=== PATIENT | male | born 1965 | race Caucasian/White ===

== ENCOUNTER 2017-04-23 12:08 | Inpatient (IN) | payer OTHER ==
[2017-04-23] VITALS (15 sets, daily range): BP systolic 132–195; BP diastolic 62–98
[~2017-04-23] VITALS: Ht 190.5 cm; Wt 83.8 kg
[~2017-04-23 12:08] MED LIST: ALBU1.25 NEB; ASCO100019 PO; ASPI-496 PO; ATOR40TA78 PO; CEFT2FRO2 IVPush; CHOL100012 PO; CLON0.2T PO; CLON0.3T47 PO; CLOP75TA52 PO; CYCL5TAB PO; FLUO10CA13 PO; GABA-826 PO; HYDR-3245 PO; HYDR-3307 PO; LORA-446 PO; LORA1TAB PO; LUBI24CA7 PO; LUBI8CAP4 PO; METH1TAB PO; MORP10SO PO; NALO1DIS IM; NIAC1000 PO; NITR0.4T28 SL; NITR100C57 PO; PIPE4.5V3 IV; PRAZ1CAP2 PO; PREG25CA PO; TRAM50TA2 PO
[2017-04-23] MEDS ORDERED: LORazepam 2 MG/ML, 1ML ONE (13:21)
[2017-04-23] MEDS ORDERED: L.E.T SOLUTION TP ONE ×2 (13:21→13:30)
[2017-04-23 13:24] LABS: HEMATOCRIT 39.5 % (39.2-51.8); HEMOGLOBIN 12.4 g/dL (13.7-18.0); WHITE BLOOD COUNT 3.6 x10^3/uL (3.4-10)
[2017-04-23] MEDS ORDERED: LORazepam 2 MG/ML, 1ML IVPush ONE (13:30)
[2017-04-23 13:42] LABS: ASPARTATE AMINO TRANSFERASE 30 U/L (15-37); BLOOD UREA NITROGEN 15 mg/dL (7-18)
[2017-04-23] MEDS ORDERED: FLUO40CA2 PO (13:42)
[2017-04-23] MEDS ORDERED: CLOP75TA52 PO (13:42)
[2017-04-23] MEDS ORDERED: LUBI24CA7 PO (13:42)
[2017-04-23] MEDS ORDERED: CHOL100011 PO (13:42)
[2017-04-23] MEDS ORDERED: ASPI-496 PO (13:42)
[2017-04-23] MEDS ORDERED: HALOPERIDOL 5 MG/ML IM STA (14:09)
[2017-04-23] MEDS ORDERED: DIPHENHYDRAMINE 50 MG/ML, 1ML ONE (14:11)
[2017-04-23] MEDS ORDERED: HALOPERIDOL 5 MG/ML ONE (14:11)
[2017-04-23] MEDS ORDERED: DIPHENHYDRAMINE 50 MG/ML, 1ML IVPush ONE (14:30)
[2017-04-23] MEDS ORDERED: OMNIPAQUE 350 MG/ML, 100ML BOTTLE ONE (15:14)
[2017-04-23] MEDS ORDERED: POLYETHYLENE GLYCOL 17 GM PACKET PO PRN (15:30)
[2017-04-23] MEDS ORDERED: BISACODYL 10 MG SUPP PR PRN (15:30)
[2017-04-23] MEDS: hydrALAzine 20 MG/ML, 1ML IVPush PRN (16:12)
[2017-04-23 16:41] LABS: EPI LOT# 5695218
[2017-04-23 16:48] LABS: HCT (PFA) 35.1 % (39.2-51.8); PLATELET (PFA) 122 x10^3/uL (130-400)
[2017-04-23] MEDS ORDERED: MORPHINE SULFATE 4 MG/ML, 1ML ONE (17:11)
[2017-04-23 18:12] LABS: EPI CARTRIDGE > 300 SECONDS (72-193)
[2017-04-23 18:13] LABS: ADP LOT# 5596625
[2017-04-23] MEDS: morphine SULFATE 10 MG/ML, 1ML IVPush PRN ×2 (20:22→22:39)
[2017-04-23] MEDS: FAMOTIDINE 20 MG/2 ML IVPush SCH (22:19)
[2017-04-23] MEDS: ATORVASTATIN 40 MG TABLET PO SCH (22:23)
[2017-04-23] MEDS: ACETAMINOPHEN 650 MG SUPP PR PRN (23:30)
[2017-04-24 00:28] LABS: EPI LOT# 5695218
[2017-04-24 00:36] LABS: HCT (PFA) 30.7 % (39.2-51.8); PLATELET (PFA) 155 x10^3/uL (130-400)
[2017-04-24 00:55] LABS: EPI CARTRIDGE > 300 SECONDS (72-193)
[2017-04-24 00:56] LABS: ADP LOT# 5596625
[2017-04-24] MEDS: HYDROcodone/APAP 10/325 MG TABLET PO PRN ×5 (03:55→23:47)
[2017-04-24 04:22] VITALS: BP 124/61
[2017-04-24 04:25] LABS: HEMATOCRIT 31.5 % (39.2-51.8); WHITE BLOOD COUNT 4.5 x10^3/uL (3.4-10)
[2017-04-24 04:32] LABS: BLOOD UREA NITROGEN 13 mg/dL (7-18)
[2017-04-24 04:36] LABS: ASPARTATE AMINO TRANSFERASE 53 U/L (15-37)
[2017-04-24] MEDS: morphine SULFATE 10 MG/ML, 1ML IVPush PRN ×3 (06:15→09:28)
[2017-04-24 07:47] LABS: FERRITIN 45.3 ng/mL (26-388)
[2017-04-24] MEDS: FAMOTIDINE 20 MG/2 ML IVPush SCH ×2 (09:32→21:43)
[2017-04-24] MEDS: DOCUSATE 100 MG CAPSULE PO PRN (12:05)
[2017-04-24] MEDS: FLUOXETINE 20 MG CAPSULE PO SCH (12:09)
[2017-04-24] MEDS: LUBIPROSTONE 24 MCG CAPSULE PO SCH (12:09)
[2017-04-24] MEDS: CHOLECALCIFEROL 1,000 UNIT TABLET PO SCH (13:12)
[2017-04-24] MEDS: DEXAMETHASONE 4 MG/ML, 1ML IVPush SCH ×3 (13:12→21:43)
[2017-04-24 14:23] LABS: EPI LOT# 5695218
[2017-04-24 14:34] LABS: HCT (PFA) 31.1 % (39.2-51.8); PLATELET (PFA) 143 x10^3/uL (130-400)
[2017-04-24 15:08] LABS: ADP LOT# 5596625; EPI CARTRIDGE 259 SECONDS (72-193)
[2017-04-24] MEDS: FERROUS SULFATE 325 MG TABLET PO SCH (15:43)
[2017-04-24] MEDS: LABETALOL 5MG/ML, 20ML IVPush PRN (18:22)
[2017-04-24] MEDS: hydrALAzine 20 MG/ML, 1ML IVPush PRN (19:16)
[2017-04-24] MEDS: ATORVASTATIN 40 MG TABLET PO SCH (21:43)
[2017-04-25] MEDS: DIPHENHYDRAMINE 50 MG/ML, 1ML IVPush PRN (00:25)
[2017-04-25] MEDS: LABETALOL 5MG/ML, 20ML IVPush PRN (02:02)
[2017-04-25] MEDS: morphine SULFATE 10 MG/ML, 1ML IVPush PRN (02:34)
[2017-04-25] MEDS: DEXAMETHASONE 4 MG/ML, 1ML IVPush SCH ×4 (04:23→21:30)
[2017-04-25] MEDS: hydrALAzine 20 MG/ML, 1ML IVPush PRN ×2 (05:26→13:38)
[2017-04-25 05:33] VITALS: BP 161/92
[2017-04-25 05:57] LABS: HEMATOCRIT 32.1 % (39.2-51.8); HEMOGLOBIN 10.1 g/dL (13.7-18.0); WHITE BLOOD COUNT 4.9 x10^3/uL (3.4-10)
[2017-04-25 06:09] LABS: BLOOD UREA NITROGEN 13 mg/dL (7-18)
[2017-04-25] MEDS: BISACODYL 10 MG SUPP PR SCH ×2 (09:00→10:41)
[2017-04-25] MEDS: FAMOTIDINE 20 MG/2 ML IVPush SCH ×2 (10:34→21:30)
[2017-04-25] MEDS: SODIUM CHLORIDE 0.9% 1,000 ML IV SCH ×2 (10:34→22:55)
[2017-04-25] MEDS: FERROUS SULFATE 325 MG TABLET PO SCH ×2 (10:34→18:16)
[2017-04-25] MEDS: LUBIPROSTONE 24 MCG CAPSULE PO SCH (10:35)
[2017-04-25] MEDS: FLUOXETINE 20 MG CAPSULE PO SCH (10:35)
[2017-04-25] MEDS: SODIUM CHLORIDE 1 GM TABLET PO SCH ×3 (10:35→21:30)
[2017-04-25] MEDS: CHOLECALCIFEROL 1,000 UNIT TABLET PO SCH (10:35)
[2017-04-25] MEDS: HYDROcodone/APAP 10/325 MG TABLET PO PRN ×4 (12:41→23:53)
[2017-04-25] MEDS: ATORVASTATIN 40 MG TABLET PO SCH (21:30)
[2017-04-26] MEDS: DIPHENHYDRAMINE 50 MG/ML, 1ML IVPush PRN (00:02)
[2017-04-26] MEDS: DEXAMETHASONE 4 MG/ML, 1ML IVPush SCH ×4 (03:47→22:10)
[2017-04-26 04:14] VITALS: BP 137/71
[2017-04-26 04:23] LABS: BLOOD UREA NITROGEN 19 mg/dL (7-18)
[2017-04-26 04:30] LABS: HEMATOCRIT 31.8 % (39.2-51.8); HEMOGLOBIN 9.9 g/dL (13.7-18.0); WHITE BLOOD COUNT 4.2 x10^3/uL (3.4-10)
[2017-04-26] MEDS: hydrALAzine 20 MG/ML, 1ML IVPush PRN (05:29)
[2017-04-26] MEDS: HYDROcodone/APAP 10/325 MG TABLET PO PRN (06:11)
[2017-04-26] MEDS ORDERED: OXYcodone IR 5MG TABLET PO PRN (09:00)
[2017-04-26] MEDS: SODIUM CHLORIDE 1 GM TABLET PO SCH ×3 (09:46→22:06)
[2017-04-26] MEDS: CHOLECALCIFEROL 1,000 UNIT TABLET PO SCH (09:46)
[2017-04-26] MEDS: FLUOXETINE 20 MG CAPSULE PO SCH (09:46)
[2017-04-26] MEDS: FAMOTIDINE 20 MG/2 ML IVPush SCH ×2 (09:47→22:06)
[2017-04-26] MEDS: FERROUS SULFATE 325 MG TABLET PO SCH ×2 (09:48→15:30)
[2017-04-26] MEDS: SODIUM CHLORIDE 0.9% 1,000 ML IV SCH (09:48)
[2017-04-26] MEDS: LUBIPROSTONE 24 MCG CAPSULE PO SCH (09:48)
[2017-04-26] MEDS: morphine SULFATE 10 MG/ML, 1ML IVPush PRN ×3 (12:04→22:44)
[2017-04-26] MEDS: HYDROcodone/APAP 5/325 TABLET PO PRN (17:49)
[2017-04-26 21:19] VITALS: BP 154/85
[2017-04-26] MEDS: ATORVASTATIN 40 MG TABLET PO SCH (22:06)
[2017-04-27] MEDS: SODIUM CHLORIDE 0.9% 1,000 ML IV SCH ×2 (00:48→14:56)
[2017-04-27] MEDS: morphine SULFATE 10 MG/ML, 1ML IVPush PRN ×7 (00:48→23:50)
[2017-04-27 02:10] VITALS: BP 157/79
[2017-04-27] MEDS: DEXAMETHASONE 4 MG/ML, 1ML IVPush SCH ×4 (03:28→21:10)
[2017-04-27] MEDS: HYDROcodone/APAP 5/325 TABLET PO PRN (06:04)
[2017-04-27 06:20] VITALS: BP 193/104
[2017-04-27 06:33] VITALS: BP 172/91
[2017-04-27] MEDS: LABETALOL 5MG/ML, 20ML IVPush PRN (06:36)
[2017-04-27] MEDS: FERROUS SULFATE 325 MG TABLET PO SCH ×2 (07:40→16:32)
[2017-04-27] MEDS: hydrALAzine 20 MG/ML, 1ML IVPush PRN (07:41)
[2017-04-27 08:23] VITALS: BP 154/86
[2017-04-27] MEDS: BISACODYL 10 MG SUPP PR SCH (09:00)
[2017-04-27 09:45] LABS: BLOOD UREA NITROGEN 14 mg/dL (7-18)
[2017-04-27] MEDS: FAMOTIDINE 20 MG/2 ML IVPush SCH ×2 (09:59→21:00)
[2017-04-27] MEDS: SODIUM CHLORIDE 1 GM TABLET PO SCH ×3 (09:59→21:01)
[2017-04-27] MEDS: LUBIPROSTONE 24 MCG CAPSULE PO SCH (09:59)
[2017-04-27] MEDS: FLUOXETINE 20 MG CAPSULE PO SCH (09:59)
[2017-04-27] MEDS: CHOLECALCIFEROL 1,000 UNIT TABLET PO SCH (09:59)
[2017-04-27 15:16] VITALS: BP 112/63
[2017-04-27] MEDS ORDERED: CIPROFLOXACIN OPHTH SOLN 0.3%, 5ML LEFTEYE SCH (19:00)
[2017-04-27 20:08] VITALS: BP 153/86
[2017-04-27] MEDS: CIPROFLOXACIN OPHTH SOLN 0.3%, 5ML LEFTEYE SCH (21:01)
[2017-04-27] MEDS: ATORVASTATIN 40 MG TABLET PO SCH (21:01)
[2017-04-27] MEDS: DOCUSATE 100 MG CAPSULE PO PRN (21:01)
[2017-04-28 00:18] VITALS: BP 157/90
[2017-04-28] MEDS: CIPROFLOXACIN OPHTH SOLN 0.3%, 5ML LEFTEYE SCH ×4 (02:26→21:00)
[2017-04-28] MEDS: DEXAMETHASONE 4 MG/ML, 1ML IVPush SCH ×4 (03:42→23:12)
[2017-04-28] MEDS: morphine SULFATE 10 MG/ML, 1ML IVPush PRN ×8 (03:42→21:59)
[2017-04-28] MEDS: SODIUM CHLORIDE 0.9% 1,000 ML IV SCH (05:03)
[2017-04-28 05:25] LABS: HEMATOCRIT 28.6 % (39.2-51.8); HEMOGLOBIN 9.3 g/dL (13.7-18.0); WHITE BLOOD COUNT 4.3 x10^3/uL (3.4-10)
[2017-04-28 05:37] LABS: BLOOD UREA NITROGEN 13 mg/dL (7-18)
[2017-04-28 06:55] VITALS: BP 184/98
[2017-04-28] MEDS: CHOLECALCIFEROL 1,000 UNIT TABLET PO SCH (07:38)
[2017-04-28] MEDS: FERROUS SULFATE 325 MG TABLET PO SCH ×2 (07:38→17:55)
[2017-04-28] MEDS: SODIUM CHLORIDE 1 GM TABLET PO SCH ×3 (07:38→21:26)
[2017-04-28] MEDS: FLUOXETINE 20 MG CAPSULE PO SCH (07:38)
[2017-04-28] MEDS: FAMOTIDINE 20 MG/2 ML IVPush SCH ×2 (07:39→21:27)
[2017-04-28] MEDS: LUBIPROSTONE 24 MCG CAPSULE PO SCH (07:39)
[2017-04-28] MEDS ORDERED: SODIUM CHLORIDE 3% 500 ML IV SCH (09:00)
[2017-04-28 10:12] LABS: BLOOD UREA NITROGEN 13 mg/dL (7-18)
[2017-04-28] MEDS ORDERED: MORPHINE SULFATE 4 MG/ML, 1ML ONE ×2 (12:42→16:00)
[2017-04-28 13:15] VITALS: BP 163/94
[2017-04-28 20:02] VITALS: BP 117/71
[2017-04-28] MEDS: ATORVASTATIN 40 MG TABLET PO SCH (21:26)
[2017-04-29] MEDS: morphine SULFATE 10 MG/ML, 1ML IVPush PRN ×10 (00:05→23:21)
[2017-04-29 02:12] VITALS: BP 161/93
[2017-04-29] MEDS: CIPROFLOXACIN OPHTH SOLN 0.3%, 5ML LEFTEYE SCH ×4 (03:00→20:56)
[2017-04-29] MEDS: DEXAMETHASONE 4 MG/ML, 1ML IVPush SCH ×4 (06:09→23:21)
[2017-04-29] MEDS: SODIUM CHLORIDE 3% 500 ML IV SCH ×2 (06:33→23:57)
[2017-04-29 07:12] VITALS: BP 186/96
[2017-04-29] MEDS: LUBIPROSTONE 24 MCG CAPSULE PO SCH (08:32)
[2017-04-29] MEDS: SODIUM CHLORIDE 1 GM TABLET PO SCH ×3 (08:32→20:56)
[2017-04-29] MEDS: CHOLECALCIFEROL 1,000 UNIT TABLET PO SCH (08:32)
[2017-04-29] MEDS: FLUOXETINE 20 MG CAPSULE PO SCH (08:32)
[2017-04-29] MEDS: FAMOTIDINE 20 MG/2 ML IVPush SCH ×2 (08:32→20:55)
[2017-04-29] MEDS: FERROUS SULFATE 325 MG TABLET PO SCH ×2 (08:32→16:54)
[2017-04-29] MEDS: ACETAMINOPHEN 650 MG SUPP PR PRN (08:36)
[2017-04-29] MEDS: BISACODYL 10 MG SUPP PR SCH ×2 (08:41→09:00)
[2017-04-29] MEDS ORDERED: SODIUM CHLORIDE 3% 500 ML IV SCH (09:00)
[2017-04-29 13:01] VITALS: BP 168/92
[2017-04-29 20:10] VITALS: BP 166/89
[2017-04-29] MEDS: ATORVASTATIN 40 MG TABLET PO SCH (20:56)
[2017-04-29] MEDS: LISINOPRIL 5 MG TABLET PO SCH (20:56)
[2017-04-30] MEDS: CIPROFLOXACIN OPHTH SOLN 0.3%, 5ML LEFTEYE SCH ×4 (03:00→20:25)
[2017-04-30] MEDS: morphine SULFATE 10 MG/ML, 1ML IVPush PRN ×8 (03:18→22:30)
[2017-04-30 03:25] VITALS: BP 189/85
[2017-04-30 05:10] LABS: BLOOD UREA NITROGEN 17 mg/dL (7-18); HEMATOCRIT 32.7 % (39.2-51.8); HEMOGLOBIN 10.4 g/dL (13.7-18.0); WHITE BLOOD COUNT 6.1 x10^3/uL (3.4-10)
[2017-04-30] MEDS: DEXAMETHASONE 4 MG/ML, 1ML IVPush SCH ×4 (05:20→22:30)
[2017-04-30 07:29] VITALS: BP 164/85
[2017-04-30] MEDS ORDERED: MORPHINE SULFATE 4 MG/ML, 1ML ONE (07:45)
[2017-04-30] MEDS: CHOLECALCIFEROL 1,000 UNIT TABLET PO SCH (07:56)
[2017-04-30] MEDS: LUBIPROSTONE 24 MCG CAPSULE PO SCH (07:57)
[2017-04-30] MEDS: FLUOXETINE 20 MG CAPSULE PO SCH (07:57)
[2017-04-30] MEDS: FERROUS SULFATE 325 MG TABLET PO SCH ×2 (07:58→18:14)
[2017-04-30] MEDS: FAMOTIDINE 20 MG/2 ML IVPush SCH ×2 (07:59→20:25)
[2017-04-30] MEDS: LISINOPRIL 5 MG TABLET PO SCH ×2 (07:59→20:26)
[2017-04-30] MEDS ORDERED: HYDROcodone/APAP 5/325 TABLET PO PRN (08:30)
[2017-04-30] MEDS: HYDROcodone/APAP 5/325 TABLET PO PRN ×2 (09:42→14:08)
[2017-04-30] MEDS ORDERED: SODIUM CHLORIDE 3% 500 ML IV SCH ×2 (10:00)
[2017-04-30 12:49] VITALS: BP 162/90
[2017-04-30] MEDS: AMLODIPINE 5 MG TABLET PO SCH (12:49)
[2017-04-30] MEDS: SODIUM CHLORIDE 1 GM TABLET PO SCH ×3 (12:49→20:26)
[2017-04-30 16:21] LABS: BLOOD UREA NITROGEN 16 mg/dL (7-18)
[2017-04-30 20:06] VITALS: BP 142/78
[2017-04-30] MEDS: ATORVASTATIN 40 MG TABLET PO SCH (20:25)
[2017-04-30 22:48] LABS: BLOOD UREA NITROGEN 16 mg/dL (7-18)
[2017-05-01] MEDS: morphine SULFATE 10 MG/ML, 1ML IVPush PRN ×3 (00:33→05:34)
[2017-05-01 01:59] VITALS: BP 180/104
[2017-05-01] MEDS: CIPROFLOXACIN OPHTH SOLN 0.3%, 5ML LEFTEYE SCH ×3 (03:00→15:00)
[2017-05-01] MEDS: DEXAMETHASONE 4 MG/ML, 1ML IVPush SCH ×4 (05:34→23:52)
[2017-05-01] MEDS: SODIUM CHLORIDE 1 GM TABLET PO SCH ×4 (05:34→20:13)
[2017-05-01 05:54] LABS: BLOOD UREA NITROGEN 13 mg/dL (7-18)
[2017-05-01 06:39] LABS: DIFF TOTAL CELLS COUNTED 100 CELL DIFF; HEMATOCRIT 34.7 % (39.2-51.8); HEMOGLOBIN 11.2 g/dL (13.7-18.0); WHITE BLOOD COUNT 7.7 x10^3/uL (3.4-10)
[2017-05-01 06:41] LABS: VERIFY COUNTS? YES
[2017-05-01 06:43] LABS: POLYCHROMASIA 1+
[2017-05-01 08:00] VITALS: BP 159/85
[2017-05-01] MEDS ORDERED: SODIUM CHLORIDE 3% 500 ML IV SCH (08:43)
[2017-05-01] MEDS: BISACODYL 10 MG SUPP PR SCH (09:00)
[2017-05-01] MEDS: FLUOXETINE 20 MG CAPSULE PO SCH (09:50)
[2017-05-01] MEDS: HYDROcodone/APAP 5/325 TABLET PO PRN ×3 (09:50→20:13)
[2017-05-01] MEDS: FAMOTIDINE 20 MG/2 ML IVPush SCH ×2 (09:50→20:13)
[2017-05-01] MEDS: CHOLECALCIFEROL 1,000 UNIT TABLET PO SCH (09:51)
[2017-05-01] MEDS: FERROUS SULFATE 325 MG TABLET PO SCH ×2 (09:51→18:33)
[2017-05-01] MEDS: AMLODIPINE 5 MG TABLET PO SCH (09:51)
[2017-05-01] MEDS: LUBIPROSTONE 24 MCG CAPSULE PO SCH (09:51)
[2017-05-01] MEDS: LISINOPRIL 5 MG TABLET PO SCH ×2 (09:59→21:08)
[2017-05-01 10:21] LABS: BLOOD UREA NITROGEN 14 mg/dL (7-18)
[2017-05-01] MEDS ORDERED: POTASSIUM CHLORIDE 20 MEQ TAB.ER.PRT PO SCH (10:30)
[2017-05-01 13:05] VITALS: BP 126/73
[2017-05-01 15:11] LABS: BLOOD UREA NITROGEN 17 mg/dL (7-18)
[2017-05-01 19:23] VITALS: BP 95/55
[2017-05-01] MEDS: ATORVASTATIN 40 MG TABLET PO SCH (20:13)
[2017-05-01] MEDS: DIPHENHYDRAMINE 50 MG/ML, 1ML IVPush PRN (21:08)
[2017-05-01 22:30] LABS: BLOOD UREA NITROGEN 20 mg/dL (7-18)
[2017-05-02 02:13] LABS: BLOOD UREA NITROGEN 19 mg/dL (7-18)
[2017-05-02 02:18] VITALS: BP 144/83
[2017-05-02] MEDS: HYDROcodone/APAP 5/325 TABLET PO PRN ×5 (04:08→22:20)
[2017-05-02] MEDS: DEXAMETHASONE 4 MG/ML, 1ML IVPush SCH ×2 (06:12→11:40)
[2017-05-02] MEDS: SODIUM CHLORIDE 1 GM TABLET PO SCH ×4 (06:12→21:02)
[2017-05-02 07:15] VITALS: BP 106/57
[2017-05-02] MEDS: AMLODIPINE 5 MG TABLET PO SCH (08:59)
[2017-05-02] MEDS: FAMOTIDINE 20 MG/2 ML IVPush SCH (09:00)
[2017-05-02] MEDS: LISINOPRIL 5 MG TABLET PO SCH ×2 (09:00→21:03)
[2017-05-02] MEDS: CHOLECALCIFEROL 1,000 UNIT TABLET PO SCH (09:00)
[2017-05-02] MEDS: LUBIPROSTONE 24 MCG CAPSULE PO SCH (09:00)
[2017-05-02] MEDS: FLUOXETINE 20 MG CAPSULE PO SCH (09:00)
[2017-05-02] MEDS: FERROUS SULFATE 325 MG TABLET PO SCH ×2 (09:00→16:13)
[2017-05-02 11:13] LABS: BLOOD UREA NITROGEN 16 mg/dL (7-18)
[2017-05-02] MEDS: DEXAMETHASONE INTENSOL 1 MG/ML ORAL SOL PO SCH ×2 (11:30→21:02)
[2017-05-02 12:54] VITALS: BP 124/70
[2017-05-02 15:16] LABS: BLOOD UREA NITROGEN 16 mg/dL (7-18)
[2017-05-02] MEDS: FLUDROCORTISONE 0.1 MG TABLET PO SCH (16:13)
[2017-05-02] MEDS: DIPHENHYDRAMINE 50 MG/ML, 1ML IVPush PRN ×2 (17:49→21:01)
[2017-05-02 19:15] VITALS: BP 95/57
[2017-05-02 20:24] LABS: BLOOD UREA NITROGEN 18 mg/dL (7-18)
[2017-05-02] MEDS: FAMOTIDINE 20 MG TABLET PO SCH (21:01)
[2017-05-02] MEDS: ATORVASTATIN 40 MG TABLET PO SCH (21:03)
[2017-05-03 02:00] VITALS: BP 118/66
[2017-05-03] MEDS: DEXAMETHASONE INTENSOL 1 MG/ML ORAL SOL PO SCH ×3 (02:24→19:29)
[2017-05-03] MEDS: HYDROcodone/APAP 5/325 TABLET PO PRN ×6 (02:25→22:45)
[2017-05-03 06:09] LABS: BLOOD UREA NITROGEN 19 mg/dL (7-18)
[2017-05-03] MEDS: SODIUM CHLORIDE 1 GM TABLET PO SCH ×4 (06:26→20:19)
[2017-05-03 06:47] VITALS: BP 145/78
[2017-05-03] MEDS: BISACODYL 10 MG SUPP PR SCH (09:00)
[2017-05-03] MEDS: FERROUS SULFATE 325 MG TABLET PO SCH ×2 (09:08→15:59)
[2017-05-03] MEDS: LISINOPRIL 5 MG TABLET PO SCH ×2 (09:08→20:19)
[2017-05-03] MEDS: FLUOXETINE 20 MG CAPSULE PO SCH (09:08)
[2017-05-03] MEDS: CHOLECALCIFEROL 1,000 UNIT TABLET PO SCH (09:08)
[2017-05-03] MEDS: FLUDROCORTISONE 0.1 MG TABLET PO SCH (09:09)
[2017-05-03] MEDS: FAMOTIDINE 20 MG TABLET PO SCH ×2 (09:09→20:19)
[2017-05-03] MEDS: LUBIPROSTONE 24 MCG CAPSULE PO SCH (09:09)
[2017-05-03] MEDS: AMLODIPINE 5 MG TABLET PO SCH (09:09)
[2017-05-03 10:25] LABS: BLOOD UREA NITROGEN 18 mg/dL (7-18)
[2017-05-03 12:08] VITALS: BP 103/55
[2017-05-03 16:30] LABS: BLOOD UREA NITROGEN 21 mg/dL (7-18)
[2017-05-03 20:14] VITALS: BP 107/60
[2017-05-03] MEDS: ATORVASTATIN 40 MG TABLET PO SCH (20:19)
[2017-05-03] MEDS: DIPHENHYDRAMINE 50 MG/ML, 1ML IVPush PRN (20:19)
[2017-05-03 22:40] LABS: BLOOD UREA NITROGEN 25 mg/dL (7-18)
[2017-05-04 03:13] VITALS: BP 101/56
[2017-05-04] MEDS: DEXAMETHASONE INTENSOL 1 MG/ML ORAL SOL PO SCH ×2 (03:18→11:14)
[2017-05-04] MEDS: HYDROcodone/APAP 5/325 TABLET PO PRN ×4 (03:18→16:01)
[2017-05-04] MEDS: SODIUM CHLORIDE 1 GM TABLET PO SCH ×3 (05:36→16:01)
[2017-05-04 05:48] LABS: HEMATOCRIT 34.3 % (39.2-51.8); WHITE BLOOD COUNT 7.8 x10^3/uL (3.4-10)
[2017-05-04 06:15] LABS: BLOOD UREA NITROGEN 18 mg/dL (7-18)
[2017-05-04 06:55] VITALS: BP 199/90
[2017-05-04] MEDS: hydrALAzine 20 MG/ML, 1ML IVPush PRN (08:13)
[2017-05-04 09:03] VITALS: BP 119/64
[2017-05-04] MEDS: FERROUS SULFATE 325 MG TABLET PO SCH (09:04)
[2017-05-04] MEDS: LUBIPROSTONE 24 MCG CAPSULE PO SCH (09:04)
[2017-05-04] MEDS: AMLODIPINE 5 MG TABLET PO SCH (09:05)
[2017-05-04] MEDS: FLUDROCORTISONE 0.1 MG TABLET PO SCH (09:05)
[2017-05-04] MEDS: CHOLECALCIFEROL 1,000 UNIT TABLET PO SCH (09:05)
[2017-05-04] MEDS: FLUOXETINE 20 MG CAPSULE PO SCH (09:05)
[2017-05-04] MEDS: LISINOPRIL 5 MG TABLET PO SCH (09:05)
[2017-05-04] MEDS: FAMOTIDINE 20 MG TABLET PO SCH (09:05)
[2017-05-04 12:03] VITALS: BP 126/64
[2017-05-04 12:33] LABS: BLOOD UREA NITROGEN 15 mg/dL (7-18)
[2017-05-04] MEDS ORDERED: FERR-36 PO (13:59)
[2017-05-04] MEDS ORDERED: CLON0.1T12 PO (13:59)
[2017-05-04] MEDS ORDERED: FAMO20TA7 PO (13:59)
[2017-05-04] MEDS ORDERED: SODI1TAB PO (13:59)
[2017-05-04] MEDS ORDERED: LISI5TAB7 PO (13:59)
[2017-05-04] MEDS ORDERED: HYDR-3240 PO (13:59)
[2017-05-04] MEDS ORDERED: DEXA0.5D PO (13:59)
[2017-05-04] MEDS ORDERED: FLUD0.1T PO (14:29)
[2017-05-04] MEDS ORDERED: AMLO10TA2 PO (14:29)
== END 2017-05-04 16:36 | disposition home health service (06) | DRG 82 ==
LOC: ED 12:56 → EDIP 13:08 → CCU 15:56 → 4EST 04-26 21:01
PROVIDERS: ADMIT Hospitalist; ATTEND Hospitalist
DX: S06.6X9A Traumatic subarachnoid hemorrhage with loss of consciousness of unspecified duration, initial encounter (principal); G82.50 Quadriplegia, unspecified; K59.2 Neurogenic bowel, not elsewhere classified; N31.9 Neuromuscular dysfunction of bladder, unspecified; E87.1 Hypo-osmolality and hyponatremia; N39.0 Urinary tract infection, site not specified; D50.9 Iron deficiency anemia, unspecified; S06.5X9A Traumatic subdural hemorrhage with loss of consciousness of unspecified duration, initial encounter; W05.0XXA Fall from non-moving wheelchair, initial encounter; E78.00 Pure hypercholesterolemia, unspecified; D63.8 Anemia in other chronic diseases classified elsewhere; H10.9 Unspecified conjunctivitis; I10 Essential (primary) hypertension; I25.10 Atherosclerotic heart disease of native coronary artery without angina pectoris; M81.0 Age-related osteoporosis without current pathological fracture; Y92.009 Unspecified place in unspecified non-institutional (private) residence as the place of occurrence of the external cause; Z79.02 Long term (current) use of antithrombotics/antiplatelets; Z79.82 Long term (current) use of aspirin; Z82.49 Family history of ischemic heart disease and other diseases of the circulatory system; Z87.440 Personal history of urinary (tract) infections; Z91.19 Patient's noncompliance with other medical treatment and regimen; Z95.1 Presence of aortocoronary bypass graft
CPT/HCPCS: 36415; 70450; 70496; 71010; 72125; 80048; 80053; 82040; 82728; 83540; 83550; 83735; 84295; 85014; 85025; 85049; 85576; 85610; 85730; 86850; 86900; 87081; 93005; 96372; 96374; 96375; J1100; Q9967; 92523-GN; J0360; J1200; J1630; J2060; J2270; J7030; P9017; P9035; S0028

== ENCOUNTER → 2017-05-18 | Outpatient (CLI) | payer OTHER ==
[~2017-05-18] MED LIST changes: +AMLO10TA2 PO; +CHOL100011 PO; +CLON0.1T12 PO; +DEXA0.5D PO; +FAMO20TA7 PO; +FERR-36 PO; +FLUD0.1T PO; +FLUO40CA2 PO; +HYDR-3240 PO; +LISI5TAB7 PO; +SODI1TAB PO
== END | disposition home or self-care (01) ==
LOC: RAD 13:52
PROVIDERS: ATTEND Nurse Practitioner
DX: G93.89 Other specified disorders of brain (principal); I60.9 Nontraumatic subarachnoid hemorrhage, unspecified
CPT/HCPCS: 70450

== ENCOUNTER 2017-10-01 17:02 | Emergency (ER) | payer OTHER ==
[~2017-10-01] VITALS: Ht 190.5 cm; Wt 75.0 kg
[~2017-10-01 17:02] MED LIST changes: +CHOL10003 PO; +CLON0.1T PO; -FERR-36 PO; +FERR-51 PO; +FERR324T5 PO
[2017-10-01] MEDS ORDERED: HYDROmorphone 2 MG/ML, 1ML ONE (18:12)
[2017-10-01 18:16] LABS: BASOPHILS # (AUTO) 0.02 x10^3/uL (0-0.1); BASOPHILS % (AUTO) 0 % (0-1); EOSINOPHILS # (AUTO) 0.08 x10^3/uL (0-0.4); EOSINOPHILS % (AUTO) 2 % (1-7); LYMPHOCYTES # (AUTO) 0.86 x10^3/uL (1-3.4); LYMPHOCYTES % (AUTO) 24 % (22-44); MD NO; MEAN CORPUSCULAR HEMOGLOBIN 30.9 pg (27.5-34.5); MEAN CORPUSCULAR HGB CONC 33.6 g/dL (33.2-36.2); MEAN CORPUSCULAR VOLUME 91.9 fL (81-97); MEAN PLATELET VOLUME 7.6 fL (7.4-10.4); MONOCYTES # (AUTO) 0.22 x10^3/uL (0.2-0.8); MONOCYTES % (AUTO) 6 % (2-9); NEUTROPHILS # (AUTO) 2.38 x10^3/uL (1.8-6.8); NEUTROPHILS % (AUTO) 67 % (42-75); PLATELET COUNT 113 x10^3/uL (130-400); RED BLOOD COUNT 5.25 x10^6/uL (4.38-5.82); RED CELL DISTRIBUTION WIDTH 13.7 % (9.4-14.8)
[2017-10-01] MEDS ORDERED: MORPHINE SULFATE 4 MG/ML, 1ML ONE ×2 (18:24→20:31)
[2017-10-01] MEDS ORDERED: ONDANSETRON 2MG/ML, 2ML ONE (18:24)
[2017-10-01 18:27] LABS: ALANINE AMINOTRANSFERASE 34 U/L (12-78); ANION GAP 8 mmol/L (5-15); CALCIUM 9.1 mg/dL (8.5-10.1); CHLORIDE 103 mmol/L (98-107); CREATININE 0.29 mg/dL (0.7-1.3)
[2017-10-01 18:29] LABS: ALKALINE PHOSPHATASE 193 U/L (45-117); BILIRUBIN,TOTAL 0.4 mg/dL (0.2-1.0); TOTAL PROTEIN 7.8 g/dL (6.4-8.2)
[2017-10-01] MEDS ORDERED: ONDANSETRON 2MG/ML, 2ML IVPush ONE (18:30)
[2017-10-01] MEDS ORDERED: HYDROmorphone 1 MG/ML, 1ML IM ONE (18:30)
[2017-10-01] MEDS: MORPHINE SULFATE 4 MG/ML, 1ML IVPush PRN ×2 (19:06→20:44)
[2017-10-01] MEDS ORDERED: LEVETIRACETAM 1,000 MG in SODIUM CHLORIDE 0.9% 100 ML IV ONE (20:30)
[2017-10-01 20:45] VITALS: BP 128/72
[2017-10-01] MEDS ORDERED: morphine SULFATE 10 MG/ML, 1ML IVPush ONE (21:30)
== END 2017-10-01 21:34 | disposition home or self-care (01) ==
LOC: ED 18:19
DX: R56.9 Unspecified convulsions (principal); E78.00 Pure hypercholesterolemia, unspecified; I11.9 Hypertensive heart disease without heart failure; I25.10 Atherosclerotic heart disease of native coronary artery without angina pectoris; Z87.820 Personal history of traumatic brain injury; Z95.1 Presence of aortocoronary bypass graft
CPT/HCPCS: 36415; 70450; 71045; 80053; 85025; 93005; 96365; 96375; 96376; 99285; J1953; J2405

== ENCOUNTER 2017-11-03 09:52 | Day surgery (SDC) | payer OTHER ==
[~2017-11-03] VITALS: Ht 190.5 cm; Wt 77.0 kg
[2017-11-03] MEDS ORDERED: LACTATED RINGERS 1,000 ML IV SCH (10:22)
[2017-11-03 10:27] VITALS: BP 161/85
[2017-11-03] MEDS ORDERED: PLEASE ENTER HEIGHT AND WEIGHT MC SCH (10:30)
[2017-11-03] MEDS ORDERED: FENTANYL PF 100 MCG/2ML ONE ×2 (11:37→12:56)
[2017-11-03] MEDS ORDERED: PROPOFOL 10 MG/ML, 20ML ONE (11:45)
[2017-11-03] MEDS ORDERED: EPHEDRINE 50 MG/ML, 1ML ONE (11:45)
[2017-11-03] MEDS ORDERED: HYDROcodone/APAP 7.5-325MG/15ML UDC ONE (12:48)
[2017-11-03] MEDS ORDERED: FENTANYL PF 100 MCG/2ML IV PRN (13:00)
[2017-11-03] MEDS ORDERED: HYDROcodone/APAP 7.5-325MG/15ML UDC PO PRN (13:00)
[2017-11-03] MEDS ORDERED: ONDANSETRON 2MG/ML, 2ML IVPush PRN (13:00)
[2017-11-03] MEDS ORDERED: GADOBUTROL 7.5 MMOL/7.5 ML PFS ONE (13:33)
== END 2017-11-03 14:40 ==
LOC: OUT 09:52 → EDSTATUS 11:45 → OUT 14:40
PROVIDERS: ATTEND Specialist
DX: R56.9 Unspecified convulsions (principal); Z95.1 Presence of aortocoronary bypass graft; I25.10 Atherosclerotic heart disease of native coronary artery without angina pectoris
CPT/HCPCS: 70553; A9585; J2704; J3010; J7120

== ENCOUNTER → 2017-11-05 | Outpatient (CLI) | payer OTHER | END | disposition home or self-care (01) | LOC: CARD 12:34 | PROVIDERS: ATTEND Specialist | DX: G40.901 Epilepsy, unspecified, not intractable, with status epilepticus (principal) | CPT/HCPCS: 95816 ==

== ENCOUNTER → 2018-01-11 | Outpatient (CLI) | payer OTHER ==
[~2018-01-11] MED LIST changes: +REGADENOSON 0.4 MG/5 ML SYRINGE ONE
== END | disposition home or self-care (01) ==
LOC: RAD 07:11
PROVIDERS: ATTEND Internal Medicine Cardiovascular Disease
DX: I25.10 Atherosclerotic heart disease of native coronary artery without angina pectoris (principal); I27.29 Other secondary pulmonary hypertension; I45.10 Unspecified right bundle-branch block; I35.0 Nonrheumatic aortic (valve) stenosis; R00.1 Bradycardia, unspecified
CPT/HCPCS: 78452; 93017; 93306; A9502; J2785

== ENCOUNTER 2018-10-16 10:53 | Outpatient (CLI) | payer MEDICARE, OTHER ==
[~2018-10-16 10:53] MED LIST changes: -AMLO10TA2 PO; +AMLO10TA8 PO; -CLON0.1T PO; +CLON0.1T22 PO; -REGADENOSON 0.4 MG/5 ML SYRINGE ONE
[2018-10-16] MEDS ORDERED: LEVE500T8 PO (11:48)
[2018-10-16] MEDS ORDERED: ASPI-496 PO (11:48)
[2018-10-16] MEDS ORDERED: LISI5TAB7 PO (11:48)
[2018-10-16 11:56] LABS: ALBUMIN 4.3 g/dL (3.4-5.0); ANION GAP 6 mmol/L (5-15); CALCIUM 9.2 mg/dL (8.5-10.1); CHLORIDE 103 mmol/L (98-107)
[2018-10-16 11:59] LABS: ALANINE AMINOTRANSFERASE 64 U/L (12-78); ALKALINE PHOSPHATASE 184 U/L (45-117); BILIRUBIN,TOTAL 0.4 mg/dL (0.2-1.0); CREATININE 0.44 mg/dL (0.7-1.3)
== END 2018-10-16 23:59 | disposition home or self-care (01) ==
LOC: STAR 10:53
PROVIDERS: ATTEND Urology
DX: Z01.818 Encounter for other preprocedural examination (principal); L02.91 Cutaneous abscess, unspecified
CPT/HCPCS: 36415; 80053

== ENCOUNTER 2018-10-23 09:36 | Day surgery (SDC) | payer MEDICARE, OTHER ==
[2018-10-16 11:50] VITALS: BP 115/76
[~2018-10-23] VITALS: Ht 190.5 cm; Wt 77.0 kg
[~2018-10-23 09:36] MED LIST changes: +LEVE500T8 PO
[2018-10-23] MEDS ORDERED: MIDAZOLAM 1 MG/ML, 2ML ONE (10:33)
[2018-10-23] MEDS ORDERED: FENTANYL PF 100 MCG/2ML ONE ×3 (10:33→13:16)
[2018-10-23] MEDS ORDERED: BUPIVACAINE/PF 0.25% ONE (10:47)
[2018-10-23] MEDS ORDERED: PROPOFOL 10 MG/ML, 20ML ONE (10:52)
[2018-10-23] MEDS ORDERED: DEXAMETHASONE 4 MG/ML, 1ML ONE (10:52)
[2018-10-23] MEDS ORDERED: ROCURONIUM 10MG/ML,5ML ONE (10:52)
[2018-10-23] MEDS ORDERED: LIDOCAINE 2% 100MG/5ML SYRINGE ONE (10:52)
[2018-10-23] MEDS ORDERED: ONDANSETRON 2MG/ML, 2ML ONE (10:52)
[2018-10-23] MEDS ORDERED: EPHEDRINE 50 MG/ML, 1ML ONE (10:52)
[2018-10-23] MEDS ORDERED: CEFTRIAXONE 1,000 MG ONE (11:18)
[2018-10-23] MEDS ORDERED: hydrALAzine 20 MG/ML, 1ML IV PRN (12:00)
[2018-10-23] MEDS ORDERED: MORPHINE SULFATE 4 MG/ML, 1ML IVPush PRN (12:00)
[2018-10-23] MEDS ORDERED: LORazepam 2 MG/ML, 1ML IVPush PRN (12:00)
[2018-10-23] MEDS ORDERED: KETOROLAC 30 MG/1 ML IV PRN (12:00)
[2018-10-23] MEDS ORDERED: ALBUTEROL SULFATE 2.5 MG/3 ML NPPB PRN (12:00)
[2018-10-23] MEDS ORDERED: OXYcodone 5 MG/5 ML ORAL.SOL UDC PO PRN (12:00)
[2018-10-23] MEDS ORDERED: HYDROmorphone 2 MG/ML, 1ML IVPush PRN (12:00)
[2018-10-23] MEDS ORDERED: METOCLOPRAMIDE 5 MG/ML, 2ML IV PRN (12:00)
[2018-10-23] MEDS ORDERED: SUGAMMADEX 200 MG/2 ML IVPush ONE (12:00)
[2018-10-23] MEDS ORDERED: LABETALOL 5MG/ML, 20ML IV PRN (12:00)
[2018-10-23] MEDS ORDERED: HYDROcodone/APAP 7.5-325MG/15ML UDC ONE (12:54)
[2018-10-23] MEDS: FENTANYL PF 100 MCG/2ML IV PRN ×3 (12:55→13:19)
[2018-10-23] MEDS: HYDROcodone/APAP 7.5-325MG/15ML UDC PO PRN ×2 (12:57→14:34)
== END 2018-10-23 15:15 | disposition home or self-care (01) ==
LOC: OUT 09:36
PROVIDERS: ATTEND Urology
DX: L02.211 Cutaneous abscess of abdominal wall (principal); I10 Essential (primary) hypertension; E78.00 Pure hypercholesterolemia, unspecified; Z87.440 Personal history of urinary (tract) infections; Z79.82 Long term (current) use of aspirin; Z88.1 Allergy status to other antibiotic agents; Z88.8 Allergy status to other drugs, medicaments and biological substances; Z96.643 Presence of artificial hip joint, bilateral; Z95.1 Presence of aortocoronary bypass graft
CPT/HCPCS: 10060; 52000; 87070; 87075; 87102; 87205; J0696; J1100; J2250; J2405; J2704; J3010; J3490

== ENCOUNTER 2018-11-19 14:14 | Inpatient (IN) | payer MEDICARE, OTHER ==
[~2018-11-19] VITALS: Ht 190.5 cm; Wt 82.1 kg
[2018-11-19] MEDS ORDERED: ACETAMINOPHEN 500 MG TABLET ONE (14:39)
--- NOTE | 2018-11-19 14:42 | NUR ---
TYLENOL 1000MG GIVEN IN TRIAGE.
--- NOTE | 2018-11-19 14:56 | NUR ---
PT TO ED FOR CHILLS AND FEVER X3 DAYS. PT RECENTLY SEEN FOR SUPRAPUBIC CATHETER INCISION/DEHISSENCE WITH SUTURES. CONNECTED TO MONITORS. VSS. 1G TYLENOL GIVEN IN TRIAGE. AWAITING EDMD ASSESSMENT.
[2018-11-19] MEDS ORDERED: SODIUM CHLORIDE FLUSH 10ML SYR IVF ONE ×2 (15:00→15:30)
[2018-11-19] MEDS ORDERED: ACETAMINOPHEN 500 MG TABLET PO ONE (15:00)
[2018-11-19 15:08] LABS: BASOPHILS % (AUTO) 0 % (0-1); EOSINOPHILS # (AUTO) 0.01 x10^3/uL (0-0.4); EOSINOPHILS % (AUTO) 0 % (1-7); LYMPHOCYTES # (AUTO) 0.35 x10^3/uL (1-3.4); LYMPHOCYTES % (AUTO) 6 % (22-44); MD NO; MEAN CORPUSCULAR HEMOGLOBIN 32.6 pg (27.5-34.5); MEAN CORPUSCULAR HGB CONC 34.5 g/dL (33.2-36.2); MEAN CORPUSCULAR VOLUME 94.6 fL (81-97); MONOCYTES # (AUTO) 0.23 x10^3/uL (0.2-0.8); MONOCYTES % (AUTO) 4 % (2-9); NEUTROPHILS # (AUTO) 5.57 x10^3/uL (1.8-6.8); NEUTROPHILS % (AUTO) 91 % (42-75); PLATELET COUNT 123 x10^3/uL (130-400); RED BLOOD COUNT 4.85 x10^6/uL (4.38-5.82)
[2018-11-19] MEDS ORDERED: ONDANSETRON 2MG/ML, 2ML ONE (15:16)
[2018-11-19] MEDS ORDERED: MORPHINE SULFATE 4 MG/ML, 1ML ONE ×2 (15:17→17:04)
[2018-11-19 15:19] LABS: ALANINE AMINOTRANSFERASE 48 U/L (12-78); ALBUMIN 4.4 g/dL (3.4-5.0); ANION GAP 9 mmol/L (5-15); CALCIUM 9.2 mg/dL (8.5-10.1); CHLORIDE 99 mmol/L (98-107)
--- NOTE | 2018-11-19 15:20 | NUR ---
xray to bedside. imaging complete.
[2018-11-19 15:21] LABS: ALKALINE PHOSPHATASE 165 U/L (45-117); BILIRUBIN,TOTAL 0.9 mg/dL (0.2-1.0); TOTAL PROTEIN 7.9 g/dL (6.4-8.2)
[2018-11-19] MEDS: MORPHINE SULFATE 4 MG/ML, 1ML IVPush PRN ×2 (15:27→17:17)
[2018-11-19] MEDS ORDERED: ONDANSETRON 2MG/ML, 2ML IVPush ONE (15:30)
--- NOTE | 2018-11-19 15:30 | NUR ---
IV ESTABLISHED. 2ND SET BC COLLECTED AND SENT. VSS. NO NEEDS AT THIS TIME.
--- NOTE | 2018-11-19 16:56 | NUR ---
REPORT RECEIVED FROM ALINA JEFFREY. ASSUMED CARE OF PT. PT CURRENTLY RESTING ON GURNEY. NAD NOTED. SKIN PWD. RESP EVEN AND EQAUL. CALL LIGHT WITHIN REACH. WILL CONT TO MONITOR PT.
[2018-11-19 17:03] LABS: CULTURE INDICATED? YES; MICROSCOPIC INDICATED
--- NOTE | 2018-11-19 17:21 | NUR ---
PT C/O INCREASED CHILLS WHICH PER PT IS A SIGN OF PAIN. PT REMEDICATED ORDERED FOR PAIN. PT REQUESTED FOOD AND PROVIDED WITH A SNACK WITH OKAY BY DEVIN BOLANOS. PT AO X 4. SKIN PWD. RESP EVEN AND EQAUL. PT AND AWARE THAT WE ARE WAITING FOR LAB RESULTS. PT DENIES OTHER NEEDS AT THIS TIME. CALL LIGHT WITHIN REACH. WILL CONT TO MONITOR PT.
--- NOTE | 2018-11-19 17:30 | NUR ---
DELAY IN ABX D/T WAITING FOR CONSULT WITH DR. BROTHERS TO ENSURE WE ARE PLACING PT ON CORRECT ABX.
--- NOTE | 2018-11-19 18:18 | NUR ---
PT SHIVERING, PT'S HYPOTENSIVE WITH 85/48 BP. ERMD SAHM NOTIFIED. IV BOLUS INITIATED. PT AO X 4. SKIN PWD. RESP EVEN AND EQAUL. AT BEDSIDE. CALL LIGHT WITHIN REACH. WILL CONT TO MONITOR PT.
[2018-11-19] MEDS ORDERED: FENTANYL PF 100 MCG/2ML ONE (18:22)
--- NOTE | 2018-11-19 18:27 | NUR ---
DAYNE TRAVIS AND DEVIN BOLANOS AWARE OF BP. IV BOLUS RUNNING. PT AND AWARE WE ARE WAITING TO ADMINISTER MORE PAIN MEDICATION AFTER IV BOLUS AND RECHECK OF BP. PT AO X 4. SKIN PWD. RESP EVEN AND EQAUL. PT ON CONT BP, CARDIAC AND O2 MONITORS. CALL LIGHT WITHIN REACH. WILL CONT TO MONITOR PT.
[2018-11-19] MEDS ORDERED: MEROPENEM 500 MG in SODIUM CHLORIDE 0.9% 100 ML IV ONE (18:30)
[2018-11-19] MEDS ORDERED: SODIUM CHLORIDE FLUSH 10ML SYR IVF PRN (18:30)
[2018-11-19] MEDS ORDERED: FENTANYL PF 100 MCG/2ML IV ONE (18:30)
[2018-11-19] MEDS ORDERED: SODIUM CHLORIDE 0.9% 1,000ML IVBOLUS ONE (18:30)
[2018-11-19] MEDS ORDERED: POLYETHYLENE GLYCOL 17 GM PACKET PO PRN (19:00)
[2018-11-19] MEDS ORDERED: ONDANSETRON 2MG/ML, 2ML IVPush PRN (19:00)
[2018-11-19] MEDS: MEROPENEM 1 GM in SODIUM CHLORIDE 0.9% 100 ML IV SCH (19:14)
--- NOTE | 2018-11-19 19:29 | NUR ---
PT CURRENTLY RESTING ON GURNEY. SHIVERING APPEARS TO BE DECREASED. PT REPORTS LESSENED SHIVERS. BP IMPROVED AFTER IVF. 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 PT AND AWARE THAT WE ARE WAITING FOR TRANSPORT. PT AO X 4. SKIN PWD. RESP EVEN AND EQAUL. CALL LIGHT WITHIN REACH. WILL CONT TO MONITOR PT.
[2018-11-19 19:45] VITALS: BP 135/70
[2018-11-19 20:10] VITALS: BP 135/70
[2018-11-19] MEDS: HEPARIN 5,000 UNITS/ML, 1ML SQ SCH (21:00)
[2018-11-19] MEDS ORDERED: ATORVASTATIN 40 MG TABLET PO SCH (21:00)
[2018-11-19] MEDS: SODIUM CHLORIDE 0.9% 1,000 ML IV SCH (21:18)
[2018-11-19] MEDS: ACETAMINOPHEN 325 MG TABLET PO PRN (21:18)
[2018-11-19] MEDS: NIACIN 500 MG TABLET.ER PO SCH (21:18)
[2018-11-19] MEDS: HYDROcodone/APAP 5/325 TABLET PO PRN (21:19)
[2018-11-19] MEDS: LEVETIRACETAM 500 MG TABLET PO SCH (21:19)
[2018-11-19 21:50] VITALS: BP 116/70
[2018-11-20] VITALS (9 sets, daily range): BP systolic 92–122; BP diastolic 51–67
[2018-11-20] MEDS: HYDROcodone/APAP 5/325 TABLET PO PRN ×6 (01:05→21:32)
[2018-11-20] MEDS: MORPHINE SULFATE 4 MG/ML, 1ML IVPush PRN ×6 (01:44→23:55)
[2018-11-20] MEDS: MEROPENEM 1 GM in SODIUM CHLORIDE 0.9% 100 ML IV SCH ×3 (03:25→19:30)
[2018-11-20] MEDS ORDERED: CYCLOBENZAPRINE 10 MG TABLET PO ONE (04:00)
[2018-11-20] MEDS: ACETAMINOPHEN 325 MG TABLET PO PRN ×3 (04:12→17:27)
[2018-11-20] MEDS: HEPARIN 5,000 UNITS/ML, 1ML SQ SCH ×3 (05:00→19:58)
[2018-11-20 06:13] LABS: ALBUMIN 3.1 g/dL (3.4-5.0); ANION GAP 7 mmol/L (5-15); CALCIUM 8.6 mg/dL (8.5-10.1); CHLORIDE 107 mmol/L (98-107); MEAN CORPUSCULAR HEMOGLOBIN 31.8 pg (27.5-34.5); MEAN CORPUSCULAR HGB CONC 33.6 g/dL (33.2-36.2); MEAN CORPUSCULAR VOLUME 94.7 fL (81-97); RED BLOOD COUNT 3.91 x10^6/uL (4.38-5.82)
[2018-11-20 06:17] LABS: ALANINE AMINOTRANSFERASE 31 U/L (12-78); ALKALINE PHOSPHATASE 107 U/L (45-117); BILIRUBIN,TOTAL 0.9 mg/dL (0.2-1.0); CREATININE 0.26 mg/dL (0.7-1.3)
[2018-11-20] MEDS: SODIUM CHLORIDE 0.9% 1,000 ML IV SCH ×3 (06:42→23:55)
[2018-11-20 06:50] LABS: MD YES
[2018-11-20 06:51] LABS: MEAN PLATELET VOLUME 6.9 fL (7.4-10.4); PLATELET COUNT 81 x10^3/uL (130-400)
[2018-11-20 06:53] LABS: <PLATELET ESTIMATE> DECREASED; <PLT MORPHOLOGY> NORMAL PLT MORPH; <RBC MORPHOLOGY> NORMAL; LYMPH#(MANUAL) 0.39 x10^3/uL (1-3.4); LYMPHS% (MANUAL) 7 % (22-44); MONOS#(MANUAL) 0.22 x10^3/uL (0.3-2.7); MONOS% (MANUAL) 4 % (2-9); SEGS% (MANUAL) 89 % (42-75)
[2018-11-20] MEDS: CHOLECALCIFEROL 1,000 UNIT TABLET PO SCH (08:44)
[2018-11-20] MEDS: LEVETIRACETAM 500 MG TABLET PO SCH ×2 (08:44→19:57)
[2018-11-20] MEDS: FLUOXETINE HCL 20 MG CAPSULE PO SCH (08:44)
[2018-11-20] MEDS: SENNA/DOCUSATE TABLET PO SCH (08:45)
[2018-11-20] MEDS: CYCLOBENZAPRINE 10 MG TABLET PO PRN ×2 (10:59→18:06)
[2018-11-20 15:44] LABS: HCT (SEDRATE) 38.7 % (39.2-51.8)
[2018-11-20] MEDS: SODIUM CHLORIDE 0.9% IVPB SCH (15:47)
[2018-11-20] MEDS: DAPTOMYCIN IVPB SCH (15:47)
[2018-11-20 16:02] LABS: CREATINE KINASE, TOTAL 110 U/L (39-308)
[2018-11-20 16:04] LABS: C-REACTIVE PROTEIN, QUANT > 19.00 mg/dL (0.02-0.49)
[2018-11-20] MEDS: ATORVASTATIN 10 MG TABLET PO SCH (19:58)
[2018-11-20] MEDS: NIACIN 500 MG TABLET.ER PO SCH (19:58)
[2018-11-20] MEDS: IBUPROFEN 200 MG TABLET PO PRN (19:59)
[2018-11-21] VITALS (9 sets, daily range): BP systolic 112–157; BP diastolic 61–96
[2018-11-21] MEDS: HYDROcodone/APAP 5/325 TABLET PO PRN ×5 (00:33→19:44)
[2018-11-21] MEDS: MEROPENEM 1 GM in SODIUM CHLORIDE 0.9% 100 ML IV SCH ×3 (03:19→19:43)
[2018-11-21] MEDS: MORPHINE SULFATE 4 MG/ML, 1ML IVPush PRN ×6 (03:27→21:37)
[2018-11-21] MEDS: HEPARIN 5,000 UNITS/ML, 1ML SQ SCH ×3 (05:00→20:16)
[2018-11-21 06:16] LABS: ANION GAP 10 mmol/L (5-15); CALCIUM 8.4 mg/dL (8.5-10.1); CHLORIDE 111 mmol/L (98-107)
[2018-11-21 06:17] LABS: CREATININE 0.23 mg/dL (0.7-1.3)
[2018-11-21 06:44] LABS: MEAN CORPUSCULAR HEMOGLOBIN 32.8 pg (27.5-34.5); MEAN CORPUSCULAR HGB CONC 34.7 g/dL (33.2-36.2); MEAN CORPUSCULAR VOLUME 94.7 fL (81-97); PLATELET COUNT 80 x10^3/uL (130-400); RED BLOOD COUNT 3.69 x10^6/uL (4.38-5.82); RED CELL DISTRIBUTION WIDTH 13.8 % (9.4-14.8)
[2018-11-21] MEDS: LEVETIRACETAM 500 MG TABLET PO SCH ×2 (07:40→20:15)
[2018-11-21] MEDS: SENNA/DOCUSATE TABLET PO SCH (07:40)
[2018-11-21] MEDS: FLUOXETINE HCL 20 MG CAPSULE PO SCH (07:40)
[2018-11-21] MEDS: CYCLOBENZAPRINE 10 MG TABLET PO PRN ×2 (07:41→15:38)
[2018-11-21] MEDS: CHOLECALCIFEROL 1,000 UNIT TABLET PO SCH (07:41)
[2018-11-21 07:53] LABS: BAND#(MANUAL) 0.51 x10^3/uL; BANDS%(MANUAL) 9 % (0-7); LYMPH#(MANUAL) 0.51 x10^3/uL (1-3.4); LYMPHS% (MANUAL) 9 % (22-44); MD YES; MONOS#(MANUAL) 0.57 x10^3/uL (0.3-2.7); MONOS% (MANUAL) 10 % (2-9); PMNS WITH VACUOLES 1+; SEGS% (MANUAL) 72 % (42-75)
[2018-11-21 07:54] LABS: <RBC MORPHOLOGY> NORMAL
[2018-11-21 07:56] LABS: <PLATELET ESTIMATE> DECREASED; SMALL PLATELETS 1+
[2018-11-21] MEDS: NS + 20MEQ KCL 1,000 ML IV SCH (08:38)
[2018-11-21] MEDS ORDERED: LORATADINE 10 MG TABLET PO SCH (09:00)
[2018-11-21] MEDS ORDERED: hydrALAzine 20 MG/ML, 1ML IV PRN (11:30)
[2018-11-21] MEDS ORDERED: ENALAPRILAT 1.25 MG/ML, 2ML IV PRN (11:30)
[2018-11-21] MEDS: LISINOPRIL 5 MG TABLET PO SCH ×2 (11:58→20:15)
[2018-11-21] MEDS: IBUPROFEN 200 MG TABLET PO PRN ×2 (12:21→21:37)
[2018-11-21] MEDS: DAPTOMYCIN IVPB SCH (15:17)
[2018-11-21] MEDS: SODIUM CHLORIDE 0.9% IVPB SCH (15:17)
[2018-11-21] MEDS: ACETAMINOPHEN 325 MG TABLET PO PRN (19:44)
[2018-11-21] MEDS: NIACIN 500 MG TABLET.ER PO SCH (20:15)
[2018-11-21] MEDS: ATORVASTATIN 10 MG TABLET PO SCH (20:15)
[2018-11-21] MEDS: BISACODYL 10 MG SUPP PR PRN (23:51)
[2018-11-22 00:01] VITALS: BP 131/75
[2018-11-22] MEDS: NS + 20MEQ KCL 1,000 ML IV SCH ×2 (00:46→14:20)
[2018-11-22] MEDS: MORPHINE SULFATE 4 MG/ML, 1ML IVPush PRN ×8 (00:47→23:59)
[2018-11-22 02:14] VITALS: BP 142/72
[2018-11-22] MEDS: HYDROcodone/APAP 5/325 TABLET PO PRN ×4 (02:18→19:37)
[2018-11-22] MEDS: ACETAMINOPHEN 325 MG TABLET PO PRN ×3 (02:18→20:40)
[2018-11-22] MEDS: MEROPENEM 1 GM in SODIUM CHLORIDE 0.9% 100 ML IV SCH (03:40)
[2018-11-22 03:56] VITALS: BP 142/74
[2018-11-22] MEDS: HEPARIN 5,000 UNITS/ML, 1ML SQ SCH ×3 (05:00→21:00)
[2018-11-22 06:00] LABS: MEAN CORPUSCULAR HEMOGLOBIN 31.5 pg (27.5-34.5); MEAN CORPUSCULAR VOLUME 95.6 fL (81-97); MEAN PLATELET VOLUME 6.7 fL (7.4-10.4); PLATELET COUNT 99 x10^3/uL (130-400); RED BLOOD COUNT 3.69 x10^6/uL (4.38-5.82); RED CELL DISTRIBUTION WIDTH 13.8 % (9.4-14.8)
[2018-11-22 06:06] LABS: ANION GAP 10 mmol/L (5-15); CALCIUM 8.2 mg/dL (8.5-10.1); CHLORIDE 106 mmol/L (98-107)
[2018-11-22 06:07] LABS: CREATININE 0.18 mg/dL (0.7-1.3)
[2018-11-22 06:28] LABS: BASOPHILS % (AUTO) 0 % (0-1); EOSINOPHILS # (AUTO) 0.02 x10^3/uL (0-0.4); EOSINOPHILS % (AUTO) 0 % (1-7); LYMPHOCYTES # (AUTO) 0.47 x10^3/uL (1-3.4); LYMPHOCYTES % (AUTO) 9 % (22-44); MD SCAN; MONOCYTES % (AUTO) 6 % (2-9); NEUTROPHILS # (AUTO) 4.15 x10^3/uL (1.8-6.8); NEUTROPHILS % (AUTO) 84 % (42-75)
[2018-11-22 07:27] VITALS: BP 137/76
[2018-11-22] MEDS: CHOLECALCIFEROL 1,000 UNIT TABLET PO SCH (08:03)
[2018-11-22] MEDS: FLUOXETINE HCL 20 MG CAPSULE PO SCH (08:04)
[2018-11-22] MEDS: LEVETIRACETAM 500 MG TABLET PO SCH ×2 (08:13→20:41)
[2018-11-22] MEDS: LISINOPRIL 5 MG TABLET PO SCH ×2 (08:13→20:40)
[2018-11-22] MEDS: SENNA/DOCUSATE TABLET PO SCH (08:13)
[2018-11-22] MEDS: CEFTRIAXONE PMX 2GM/50ML 50 ML IV SCH (10:32)
[2018-11-22] MEDS: IBUPROFEN 200 MG TABLET PO PRN ×2 (10:49→18:38)
[2018-11-22] MEDS: SODIUM CHLORIDE 0.9% IVPB SCH (12:52)
[2018-11-22] MEDS: DAPTOMYCIN IVPB SCH (12:52)
[2018-11-22 14:25] VITALS: BP 151/89
[2018-11-22 18:35] VITALS: BP 136/77
[2018-11-22] MEDS: CYCLOBENZAPRINE 10 MG TABLET PO PRN (18:44)
[2018-11-22] MEDS ORDERED: SODIUM CHLORIDE FLUSH 10ML SYR IVF PRN (20:00)
[2018-11-22] MEDS: NIACIN 500 MG TABLET.ER PO SCH (20:40)
[2018-11-22] MEDS: SODIUM CHLORIDE FLUSH 10ML SYR IVF SCH (20:41)
[2018-11-22] MEDS: ATORVASTATIN 10 MG TABLET PO SCH (21:00)
[2018-11-23] MEDS: MORPHINE SULFATE 4 MG/ML, 1ML IVPush PRN ×7 (03:06→22:05)
[2018-11-23 03:11] VITALS: BP 128/76
[2018-11-23] MEDS: HEPARIN 5,000 UNITS/ML, 1ML SQ SCH ×3 (05:00→21:00)
[2018-11-23] MEDS: HYDROcodone/APAP 5/325 TABLET PO PRN ×3 (05:08→17:42)
[2018-11-23] MEDS: ACETAMINOPHEN 325 MG TABLET PO PRN ×4 (05:08→22:05)
[2018-11-23 05:48] LABS: MEAN CORPUSCULAR HEMOGLOBIN 32.1 pg (27.5-34.5); MEAN CORPUSCULAR HGB CONC 33.7 g/dL (33.2-36.2); MEAN CORPUSCULAR VOLUME 95.3 fL (81-97); MEAN PLATELET VOLUME 7.2 fL (7.4-10.4); PLATELET COUNT 112 x10^3/uL (130-400); RED BLOOD COUNT 3.56 x10^6/uL (4.38-5.82); RED CELL DISTRIBUTION WIDTH 13.8 % (9.4-14.8)
[2018-11-23 05:53] LABS: CALCIUM 8.5 mg/dL (8.5-10.1); CHLORIDE 106 mmol/L (98-107)
[2018-11-23 05:57] LABS: ANION GAP 8 mmol/L (5-15); CREATININE 0.29 mg/dL (0.7-1.3)
[2018-11-23] MEDS: NS + 20MEQ KCL 1,000 ML IV SCH (06:04)
[2018-11-23 06:32] LABS: MD YES
[2018-11-23 06:35] LABS: BAND#(MANUAL) 0.85 x10^3/uL; BANDS%(MANUAL) 16 % (0-7); LYMPH#(MANUAL) 0.16 x10^3/uL (1-3.4); LYMPHS% (MANUAL) 3 % (22-44); MONOS#(MANUAL) 0.27 x10^3/uL (0.3-2.7); MONOS% (MANUAL) 5 % (2-9); SEG#(MANUAL) 4.03 x10^3/uL (1.8-6.8); SEGS% (MANUAL) 76 % (42-75)
[2018-11-23 06:36] LABS: <PLATELET ESTIMATE> DECREASED; <PLT MORPHOLOGY> NORMAL PLT MORPH; <RBC MORPHOLOGY> NORMAL
[2018-11-23 08:15] VITALS: BP 99/65
[2018-11-23] MEDS: SENNA/DOCUSATE TABLET PO SCH (09:00)
[2018-11-23] MEDS: SODIUM CHLORIDE FLUSH 10ML SYR IVF SCH ×2 (09:00→21:00)
[2018-11-23] MEDS: CHOLECALCIFEROL 1,000 UNIT TABLET PO SCH (09:42)
[2018-11-23] MEDS: LISINOPRIL 5 MG TABLET PO SCH ×2 (09:43→22:05)
[2018-11-23] MEDS: LEVETIRACETAM 500 MG TABLET PO SCH ×2 (09:43→22:05)
[2018-11-23] MEDS: FLUOXETINE HCL 20 MG CAPSULE PO SCH (09:43)
[2018-11-23] MEDS: AMLODIPINE 10 MG TAB PO SCH (09:44)
[2018-11-23] MEDS: CEFTRIAXONE PMX 2GM/50ML 50 ML IV SCH (09:54)
[2018-11-23 11:33] VITALS: BP 97/66
[2018-11-23] MEDS: SODIUM CHLORIDE 0.9% IVPB SCH (12:24)
[2018-11-23] MEDS: DAPTOMYCIN IVPB SCH (12:24)
[2018-11-23 13:00] VITALS: BP 129/72
[2018-11-23 15:22] VITALS: BP 109/68
[2018-11-23] MEDS: BISACODYL 10 MG SUPP PR PRN (15:29)
[2018-11-23 17:27] VITALS: BP 139/65
[2018-11-23] MEDS: CYCLOBENZAPRINE 10 MG TABLET PO PRN (17:43)
[2018-11-23] MEDS: LINEZOLID 600 MG TABLET PO SCH (22:05)
[2018-11-23] MEDS: ATORVASTATIN 10 MG TABLET PO SCH (22:05)
[2018-11-23] MEDS: NIACIN 500 MG TABLET.ER PO SCH (22:05)
[2018-11-24] MEDS: MORPHINE SULFATE 4 MG/ML, 1ML IVPush PRN ×8 (01:14→23:11)
[2018-11-24 01:15] VITALS: BP 108/66
[2018-11-24] MEDS: NS + 20MEQ KCL 1,000 ML IV SCH (01:15)
[2018-11-24] MEDS: ACETAMINOPHEN 325 MG TABLET PO PRN ×2 (04:33→11:55)
[2018-11-24] MEDS: HEPARIN 5,000 UNITS/ML, 1ML SQ SCH ×3 (04:47→19:44)
[2018-11-24] MEDS: LISINOPRIL 5 MG TABLET PO SCH ×2 (07:38→21:18)
[2018-11-24] MEDS: AMLODIPINE 10 MG TAB PO SCH (07:38)
[2018-11-24] MEDS: FLUOXETINE HCL 20 MG CAPSULE PO SCH (07:38)
[2018-11-24] MEDS: LINEZOLID 600 MG TABLET PO SCH ×2 (07:38→21:17)
[2018-11-24] MEDS: LEVETIRACETAM 500 MG TABLET PO SCH ×2 (07:38→21:17)
[2018-11-24] MEDS: CHOLECALCIFEROL 1,000 UNIT TABLET PO SCH (07:38)
[2018-11-24 08:03] VITALS: BP 130/77
[2018-11-24] MEDS: SODIUM CHLORIDE FLUSH 10ML SYR IVF SCH ×2 (08:42→19:44)
[2018-11-24] MEDS: SENNA/DOCUSATE TABLET PO SCH (08:42)
[2018-11-24] MEDS: CEFTRIAXONE PMX 2GM/50ML 50 ML IV SCH (09:19)
[2018-11-24] MEDS: CYCLOBENZAPRINE 10 MG TABLET PO PRN (09:20)
[2018-11-24 11:04] LABS: HCT (SEDRATE) 34.3 % (39.2-51.8)
[2018-11-24] MEDS: HYDROcodone/APAP 5/325 TABLET PO PRN ×3 (11:55→22:09)
[2018-11-24 12:25] VITALS: BP 125/75
[2018-11-24 20:00] VITALS: BP 149/77
[2018-11-24] MEDS: ATORVASTATIN 10 MG TABLET PO SCH (21:17)
[2018-11-24] MEDS: NIACIN 500 MG TABLET.ER PO SCH (21:17)
[2018-11-25 01:36] VITALS: BP 137/81
[2018-11-25] MEDS: MORPHINE SULFATE 4 MG/ML, 1ML IVPush PRN ×7 (02:06→22:44)
[2018-11-25] MEDS: HYDROcodone/APAP 5/325 TABLET PO PRN ×4 (03:51→21:03)
[2018-11-25] MEDS: HEPARIN 5,000 UNITS/ML, 1ML SQ SCH ×3 (04:16→20:59)
[2018-11-25 05:57] LABS: CHLORIDE 100 mmol/L (98-107)
[2018-11-25 06:18] LABS: ALANINE AMINOTRANSFERASE 30 U/L (12-78); ALBUMIN 2.4 g/dL (3.4-5.0); ALKALINE PHOSPHATASE 104 U/L (45-117); ANION GAP 7 mmol/L (5-15); BASOPHILS # (AUTO) 0.02 x10^3/uL (0-0.1); BASOPHILS % (AUTO) 0 % (0-1); BILIRUBIN,TOTAL 0.8 mg/dL (0.2-1.0); CALCIUM 8.1 mg/dL (8.5-10.1); CREATININE 0.28 mg/dL (0.7-1.3); EOSINOPHILS # (AUTO) 0.01 x10^3/uL (0-0.4); EOSINOPHILS % (AUTO) 0 % (1-7); LYMPHOCYTES # (AUTO) 0.44 x10^3/uL (1-3.4); LYMPHOCYTES % (AUTO) 8 % (22-44); MD NO; MEAN CORPUSCULAR HEMOGLOBIN 32.6 pg (27.5-34.5); MEAN CORPUSCULAR HGB CONC 34.5 g/dL (33.2-36.2); MEAN CORPUSCULAR VOLUME 94.4 fL (81-97); MEAN PLATELET VOLUME 7.1 fL (7.4-10.4); MONOCYTES # (AUTO) 0.52 x10^3/uL (0.2-0.8); MONOCYTES % (AUTO) 9 % (2-9); NEUTROPHILS # (AUTO) 4.49 x10^3/uL (1.8-6.8); NEUTROPHILS % (AUTO) 82 % (42-75); PLATELET COUNT 142 x10^3/uL (130-400); RED BLOOD COUNT 3.48 x10^6/uL (4.38-5.82); RED CELL DISTRIBUTION WIDTH 13.9 % (9.4-14.8); TOTAL PROTEIN 6.1 g/dL (6.4-8.2)
[2018-11-25 07:40] VITALS: BP 142/83
[2018-11-25] MEDS: CHOLECALCIFEROL 1,000 UNIT TABLET PO SCH (08:27)
[2018-11-25] MEDS: LEVETIRACETAM 500 MG TABLET PO SCH ×2 (08:27→21:03)
[2018-11-25] MEDS: CEFTRIAXONE PMX 2GM/50ML 50 ML IV SCH (08:28)
[2018-11-25] MEDS: FLUOXETINE HCL 20 MG CAPSULE PO SCH (08:28)
[2018-11-25] MEDS: LISINOPRIL 5 MG TABLET PO SCH ×2 (08:28→21:03)
[2018-11-25] MEDS: AMLODIPINE 10 MG TAB PO SCH (08:28)
[2018-11-25] MEDS: LINEZOLID 600 MG TABLET PO SCH (08:28)
[2018-11-25] MEDS: SODIUM CHLORIDE FLUSH 10ML SYR IVF SCH ×2 (08:29→21:00)
[2018-11-25] MEDS: SENNA/DOCUSATE TABLET PO SCH (08:29)
[2018-11-25] MEDS ORDERED: FUROSEMIDE 40 MG/4 ML IV ONE (09:30)
[2018-11-25 12:30] VITALS: BP 137/87
[2018-11-25] MEDS: ERTAPENEM 1 GM in SODIUM CHLORIDE 0.9% 50 ML IV SCH (13:32)
[2018-11-25] MEDS: DAPTOMYCIN 725 MG in SODIUM CHLORIDE 0.9% 100 ML IVPB SCH (14:25)
[2018-11-25 20:05] VITALS: BP 116/71
[2018-11-25] MEDS: NIACIN 500 MG TABLET.ER PO SCH (21:03)
[2018-11-26 00:31] VITALS: BP 128/68
[2018-11-26] MEDS: ACETAMINOPHEN 325 MG TABLET PO PRN ×2 (01:01→20:14)
[2018-11-26] MEDS: HYDROcodone/APAP 5/325 TABLET PO PRN ×5 (01:02→22:17)
[2018-11-26] MEDS: MORPHINE SULFATE 4 MG/ML, 1ML IVPush PRN ×7 (01:46→20:58)
[2018-11-26] MEDS: HEPARIN 5,000 UNITS/ML, 1ML SQ SCH ×3 (02:54→19:50)
[2018-11-26 03:09] LABS: ANION GAP 11 mmol/L (5-15); CALCIUM 8.1 mg/dL (8.5-10.1); CHLORIDE 98 mmol/L (98-107); CREATININE 0.28 mg/dL (0.7-1.3)
[2018-11-26 03:28] LABS: BASOPHILS % (AUTO) 0 % (0-1); EOSINOPHILS # (AUTO) 0.03 x10^3/uL (0-0.4); EOSINOPHILS % (AUTO) 1 % (1-7); LYMPHOCYTES # (AUTO) 0.48 x10^3/uL (1-3.4); LYMPHOCYTES % (AUTO) 8 % (22-44); MD NO; MEAN CORPUSCULAR HEMOGLOBIN 32.2 pg (27.5-34.5); MEAN CORPUSCULAR VOLUME 94.7 fL (81-97); MEAN PLATELET VOLUME 6.8 fL (7.4-10.4); MONOCYTES # (AUTO) 0.45 x10^3/uL (0.2-0.8); MONOCYTES % (AUTO) 8 % (2-9); NEUTROPHILS # (AUTO) 4.77 x10^3/uL (1.8-6.8); NEUTROPHILS % (AUTO) 83 % (42-75); PLATELET COUNT 181 x10^3/uL (130-400); RED BLOOD COUNT 3.59 x10^6/uL (4.38-5.82); RED CELL DISTRIBUTION WIDTH 13.8 % (9.4-14.8)
[2018-11-26 06:48] VITALS: BP 143/78
[2018-11-26] MEDS: AMLODIPINE 10 MG TAB PO SCH (07:43)
[2018-11-26] MEDS: SODIUM CHLORIDE FLUSH 10ML SYR IVF SCH ×2 (07:43→19:50)
[2018-11-26] MEDS: FLUOXETINE HCL 20 MG CAPSULE PO SCH (07:43)
[2018-11-26] MEDS: SENNA/DOCUSATE TABLET PO SCH (07:43)
[2018-11-26] MEDS: LEVETIRACETAM 500 MG TABLET PO SCH ×2 (07:43→19:48)
[2018-11-26] MEDS: CHOLECALCIFEROL 1,000 UNIT TABLET PO SCH (07:43)
[2018-11-26] MEDS: LISINOPRIL 5 MG TABLET PO SCH ×2 (07:43→19:49)
[2018-11-26] MEDS: ERTAPENEM 1 GM in SODIUM CHLORIDE 0.9% 50 ML IV SCH (11:58)
[2018-11-26 12:20] VITALS: BP 102/64
[2018-11-26] MEDS: DAPTOMYCIN 725 MG in SODIUM CHLORIDE 0.9% 100 ML IVPB SCH (13:31)
[2018-11-26] MEDS ORDERED: POTASSIUM CHLORIDE 20 MEQ TAB.ER.PRT PO ONE (14:00)
[2018-11-26] MEDS: NIACIN 500 MG TABLET.ER PO SCH (19:48)
[2018-11-26] MEDS: CYCLOBENZAPRINE 10 MG TABLET PO PRN (19:49)
[2018-11-26 20:00] VITALS: BP 121/67
[2018-11-27 00:59] VITALS: BP 110/69
[2018-11-27] MEDS: MORPHINE SULFATE 4 MG/ML, 1ML IVPush PRN ×6 (01:15→22:58)
[2018-11-27] MEDS: HYDROcodone/APAP 5/325 TABLET PO PRN ×4 (03:19→20:57)
[2018-11-27] MEDS: HEPARIN 5,000 UNITS/ML, 1ML SQ SCH ×3 (04:48→21:00)
[2018-11-27 05:19] LABS: BASOPHILS % (AUTO) 0 % (0-1); EOSINOPHILS # (AUTO) 0.03 x10^3/uL (0-0.4); EOSINOPHILS % (AUTO) 0 % (1-7); LYMPHOCYTES % (AUTO) 6 % (22-44); MD NO; MEAN CORPUSCULAR HEMOGLOBIN 31.2 pg (27.5-34.5); MEAN CORPUSCULAR VOLUME 94.7 fL (81-97); MEAN PLATELET VOLUME 6.6 fL (7.4-10.4); MONOCYTES # (AUTO) 0.52 x10^3/uL (0.2-0.8); MONOCYTES % (AUTO) 8 % (2-9); NEUTROPHILS # (AUTO) 5.84 x10^3/uL (1.8-6.8); NEUTROPHILS % (AUTO) 86 % (42-75); PLATELET COUNT 185 x10^3/uL (130-400); RED BLOOD COUNT 3.86 x10^6/uL (4.38-5.82); RED CELL DISTRIBUTION WIDTH 13.7 % (9.4-14.8)
[2018-11-27 05:32] LABS: CALCIUM 8.4 mg/dL (8.5-10.1); CHLORIDE 100 mmol/L (98-107)
[2018-11-27 05:42] LABS: ALANINE AMINOTRANSFERASE 42 U/L (12-78); ALBUMIN 2.6 g/dL (3.4-5.0); ALKALINE PHOSPHATASE 113 U/L (45-117); ANION GAP 6 mmol/L (5-15); BILIRUBIN,TOTAL 0.7 mg/dL (0.2-1.0); CREATINE KINASE, TOTAL 71 U/L (39-308); CREATININE 0.29 mg/dL (0.7-1.3); TOTAL PROTEIN 6.3 g/dL (6.4-8.2)
[2018-11-27 05:55] LABS: HCT (SEDRATE) 36.6 % (39.2-51.8)
[2018-11-27 06:08] LABS: C-REACTIVE PROTEIN, QUANT > 19.00 mg/dL (0.02-0.49)
[2018-11-27 07:36] VITALS: BP 116/77
[2018-11-27] MEDS: LEVETIRACETAM 500 MG TABLET PO SCH ×2 (08:03→19:37)
[2018-11-27] MEDS: SODIUM CHLORIDE FLUSH 10ML SYR IVF SCH ×2 (09:00→19:38)
[2018-11-27] MEDS: SENNA/DOCUSATE TABLET PO SCH (09:00)
[2018-11-27] MEDS: AMLODIPINE 10 MG TAB PO SCH (09:00)
[2018-11-27] MEDS: CHOLECALCIFEROL 1,000 UNIT TABLET PO SCH (09:00)
[2018-11-27] MEDS: FLUOXETINE HCL 20 MG CAPSULE PO SCH (09:00)
[2018-11-27] MEDS: LISINOPRIL 5 MG TABLET PO SCH ×2 (09:00→19:38)
[2018-11-27] MEDS ORDERED: PROPOFOL 10 MG/ML, 20ML ONE (11:31)
[2018-11-27] MEDS ORDERED: ONDANSETRON 2MG/ML, 2ML IV PRN (13:00)
[2018-11-27] MEDS ORDERED: ONDANSETRON ODT 8 MG PO PRN (13:00)
[2018-11-27] MEDS ORDERED: hydrALAzine 20 MG/ML, 1ML IV PRN (13:00)
[2018-11-27] MEDS ORDERED: MORPHINE SULFATE 4 MG/ML, 1ML IVPush PRN (13:00)
[2018-11-27] MEDS ORDERED: PROMETHAZINE 12.5 MG SUPP PR PRN (13:00)
[2018-11-27] MEDS ORDERED: MIDAZOLAM 1 MG/ML, 2ML IV PRN (13:00)
[2018-11-27] MEDS ORDERED: HYDROmorphone 2 MG/ML, 1ML IVPush PRN (13:00)
[2018-11-27] MEDS ORDERED: DIAZEPAM 5 MG/ML, 2ML IVPush PRN (13:00)
[2018-11-27] MEDS ORDERED: MEPERIDINE/PF 25MG/0.5ML IVPush PRN (13:00)
[2018-11-27] MEDS ORDERED: HALOPERIDOL 5 MG/ML IV PRN (13:00)
[2018-11-27] MEDS ORDERED: LABETALOL 5MG/ML, 20ML IV PRN (13:00)
[2018-11-27] MEDS ORDERED: PROMETHAZINE 25 MG/ML, 1ML IV PRN (13:00)
[2018-11-27] MEDS ORDERED: EPHEDRINE 50 MG/ML, 1ML IVPush PRN (13:00)
[2018-11-27] MEDS ORDERED: FENTANYL PF 100 MCG/2ML IV PRN (13:00)
[2018-11-27] MEDS ORDERED: ALBUTEROL SULFATE 2.5 MG/3 ML NPPB PRN (13:00)
[2018-11-27] MEDS ORDERED: MORPHINE SULFATE 4 MG/ML, 1ML ONE (13:09)
[2018-11-27 14:00] VITALS: BP 100/65
[2018-11-27] MEDS: ERTAPENEM 1 GM in SODIUM CHLORIDE 0.9% 50 ML IV SCH (14:38)
[2018-11-27] MEDS: CYCLOBENZAPRINE 10 MG TABLET PO PRN ×2 (15:40→23:54)
[2018-11-27] MEDS: DAPTOMYCIN 725 MG in SODIUM CHLORIDE 0.9% 100 ML IVPB SCH (16:28)
[2018-11-27 19:03] VITALS: BP 117/73
[2018-11-27] MEDS: NIACIN 500 MG TABLET.ER PO SCH (19:37)
[2018-11-28 01:35] VITALS: BP 131/79
[2018-11-28] MEDS: MORPHINE SULFATE 4 MG/ML, 1ML IVPush PRN ×6 (04:12→22:18)
[2018-11-28] MEDS: HEPARIN 5,000 UNITS/ML, 1ML SQ SCH ×3 (05:00→21:00)
[2018-11-28] MEDS: HYDROcodone/APAP 5/325 TABLET PO PRN ×4 (05:49→21:20)
[2018-11-28 07:30] VITALS: BP 124/80
[2018-11-28 07:36] LABS: BASOPHILS # (AUTO) 0.03 x10^3/uL (0-0.1); BASOPHILS % (AUTO) 0 % (0-1); EOSINOPHILS # (AUTO) 0.03 x10^3/uL (0-0.4); EOSINOPHILS % (AUTO) 0 % (1-7); LYMPHOCYTES # (AUTO) 0.62 x10^3/uL (1-3.4); LYMPHOCYTES % (AUTO) 6 % (22-44); MD NO; MEAN CORPUSCULAR HEMOGLOBIN 31.1 pg (27.5-34.5); MEAN CORPUSCULAR VOLUME 94.3 fL (81-97); MEAN PLATELET VOLUME 6.8 fL (7.4-10.4); MONOCYTES # (AUTO) 0.55 x10^3/uL (0.2-0.8); MONOCYTES % (AUTO) 5 % (2-9); NEUTROPHILS # (AUTO) 9.14 x10^3/uL (1.8-6.8); NEUTROPHILS % (AUTO) 88 % (42-75); PLATELET COUNT 197 x10^3/uL (130-400); RED BLOOD COUNT 3.81 x10^6/uL (4.38-5.82)
[2018-11-28 07:37] LABS: ANION GAP 6 mmol/L (5-15); CALCIUM 8.4 mg/dL (8.5-10.1); CHLORIDE 99 mmol/L (98-107); CREATININE 0.24 mg/dL (0.7-1.3)
[2018-11-28] MEDS: CYCLOBENZAPRINE 10 MG TABLET PO PRN ×2 (08:00→16:28)
[2018-11-28] MEDS: SODIUM CHLORIDE FLUSH 10ML SYR IVF SCH ×2 (10:38→21:00)
[2018-11-28] MEDS: AMLODIPINE 10 MG TAB PO SCH (10:39)
[2018-11-28] MEDS: LEVETIRACETAM 500 MG TABLET PO SCH ×2 (10:39→21:20)
[2018-11-28] MEDS: LISINOPRIL 5 MG TABLET PO SCH ×2 (10:39→21:20)
[2018-11-28] MEDS: CHOLECALCIFEROL 1,000 UNIT TABLET PO SCH (10:40)
[2018-11-28] MEDS: FLUOXETINE HCL 20 MG CAPSULE PO SCH (10:40)
[2018-11-28] MEDS: SENNA/DOCUSATE TABLET PO SCH (10:40)
[2018-11-28] MEDS: ERTAPENEM 1 GM in SODIUM CHLORIDE 0.9% 50 ML IV SCH (14:30)
[2018-11-28 15:06] VITALS: BP 131/79
[2018-11-28] MEDS: DAPTOMYCIN 725 MG in SODIUM CHLORIDE 0.9% 100 ML IVPB SCH (16:28)
[2018-11-28 19:30] VITALS: BP 127/75
[2018-11-28] MEDS: NIACIN 500 MG TABLET.ER PO SCH (21:19)
[2018-11-28] MEDS: IBUPROFEN 200 MG TABLET PO PRN (21:20)
[2018-11-29] MEDS: CYCLOBENZAPRINE 10 MG TABLET PO PRN (00:34)
[2018-11-29 01:37] VITALS: BP 136/76
[2018-11-29] MEDS: HEPARIN 5,000 UNITS/ML, 1ML SQ SCH ×3 (05:00→21:00)
[2018-11-29] MEDS: MORPHINE SULFATE 4 MG/ML, 1ML IVPush PRN ×6 (06:11→23:07)
[2018-11-29 06:58] LABS: BASOPHILS # (AUTO) 0.01 x10^3/uL (0-0.1); BASOPHILS % (AUTO) 0 % (0-1); EOSINOPHILS # (AUTO) 0.22 x10^3/uL (0-0.4); EOSINOPHILS % (AUTO) 3 % (1-7); LYMPHOCYTES # (AUTO) 0.68 x10^3/uL (1-3.4); LYMPHOCYTES % (AUTO) 9 % (22-44); MD NO; MEAN CORPUSCULAR HEMOGLOBIN 31.9 pg (27.5-34.5); MEAN CORPUSCULAR HGB CONC 33.6 g/dL (33.2-36.2); MEAN CORPUSCULAR VOLUME 94.9 fL (81-97); MEAN PLATELET VOLUME 6.8 fL (7.4-10.4); MONOCYTES % (AUTO) 6 % (2-9); NEUTROPHILS # (AUTO) 6.38 x10^3/uL (1.8-6.8); NEUTROPHILS % (AUTO) 82 % (42-75); PLATELET COUNT 190 x10^3/uL (130-400); RED BLOOD COUNT 3.72 x10^6/uL (4.38-5.82); RED CELL DISTRIBUTION WIDTH 13.9 % (9.4-14.8)
[2018-11-29 07:18] LABS: ALANINE AMINOTRANSFERASE 55 U/L (12-78); ALBUMIN 2.5 g/dL (3.4-5.0); ANION GAP 8 mmol/L (5-15); CALCIUM 8.2 mg/dL (8.5-10.1); CHLORIDE 103 mmol/L (98-107); CREATININE 0.27 mg/dL (0.7-1.3)
[2018-11-29 07:20] LABS: ALKALINE PHOSPHATASE 124 U/L (45-117); BILIRUBIN,TOTAL 0.7 mg/dL (0.2-1.0); TOTAL PROTEIN 6.5 g/dL (6.4-8.2)
[2018-11-29 07:50] VITALS: BP 119/76
[2018-11-29] MEDS: SODIUM CHLORIDE FLUSH 10ML SYR IVF SCH ×2 (09:00→21:16)
[2018-11-29] MEDS: LISINOPRIL 5 MG TABLET PO SCH ×2 (09:00→21:15)
[2018-11-29] MEDS: SENNA/DOCUSATE TABLET PO SCH (09:04)
[2018-11-29] MEDS: LEVETIRACETAM 500 MG TABLET PO SCH ×2 (09:05→21:15)
[2018-11-29] MEDS: FLUOXETINE HCL 20 MG CAPSULE PO SCH (09:05)
[2018-11-29] MEDS: AMLODIPINE 10 MG TAB PO SCH (09:05)
[2018-11-29] MEDS: CHOLECALCIFEROL 1,000 UNIT TABLET PO SCH (09:05)
[2018-11-29] MEDS: ERTAPENEM 1 GM in SODIUM CHLORIDE 0.9% 50 ML IV SCH (12:26)
[2018-11-29] MEDS: DAPTOMYCIN 725 MG in SODIUM CHLORIDE 0.9% 100 ML IVPB SCH (13:20)
[2018-11-29 14:50] VITALS: BP 113/73
[2018-11-29] MEDS: HYDROcodone/APAP 5/325 TABLET PO PRN (16:55)
[2018-11-29 17:36] LABS: CULTURE INDICATED? YES; MICROSCOPIC INDICATED
[2018-11-29 18:55] VITALS: BP 142/88
[2018-11-29] MEDS: NIACIN 500 MG TABLET.ER PO SCH (21:15)
[2018-11-30] MEDS: HYDROcodone/APAP 5/325 TABLET PO PRN ×3 (00:29→17:50)
[2018-11-30 01:32] VITALS: BP 143/79
[2018-11-30] MEDS: MORPHINE SULFATE 4 MG/ML, 1ML IVPush PRN ×8 (02:10→21:50)
[2018-11-30] MEDS: HEPARIN 5,000 UNITS/ML, 1ML SQ SCH ×3 (05:00→20:48)
[2018-11-30 05:36] LABS: BASOPHILS # (AUTO) 0.02 x10^3/uL (0-0.1); BASOPHILS % (AUTO) 0 % (0-1); EOSINOPHILS # (AUTO) 0.07 x10^3/uL (0-0.4); EOSINOPHILS % (AUTO) 1 % (1-7); LYMPHOCYTES % (AUTO) 13 % (22-44); MD NO; MEAN CORPUSCULAR HEMOGLOBIN 30.9 pg (27.5-34.5); MEAN CORPUSCULAR HGB CONC 32.8 g/dL (33.2-36.2); MEAN CORPUSCULAR VOLUME 94.4 fL (81-97); MEAN PLATELET VOLUME 6.9 fL (7.4-10.4); MONOCYTES # (AUTO) 0.52 x10^3/uL (0.2-0.8); MONOCYTES % (AUTO) 8 % (2-9); NEUTROPHILS # (AUTO) 5.41 x10^3/uL (1.8-6.8); NEUTROPHILS % (AUTO) 78 % (42-75); PLATELET COUNT 228 x10^3/uL (130-400); RED BLOOD COUNT 3.79 x10^6/uL (4.38-5.82); RED CELL DISTRIBUTION WIDTH 14.1 % (9.4-14.8)
[2018-11-30 07:30] VITALS: BP 107/68
[2018-11-30] MEDS: LISINOPRIL 5 MG TABLET PO SCH ×2 (09:24→20:57)
[2018-11-30] MEDS: AMLODIPINE 10 MG TAB PO SCH (09:28)
[2018-11-30] MEDS: CHOLECALCIFEROL 1,000 UNIT TABLET PO SCH (09:28)
[2018-11-30] MEDS: LEVETIRACETAM 500 MG TABLET PO SCH ×2 (09:28→20:56)
[2018-11-30] MEDS: FLUOXETINE HCL 20 MG CAPSULE PO SCH (09:29)
[2018-11-30] MEDS: SENNA/DOCUSATE TABLET PO SCH (09:29)
[2018-11-30] MEDS: SODIUM CHLORIDE FLUSH 10ML SYR IVF SCH ×2 (09:29→21:08)
[2018-11-30] MEDS: MAGNESIUM HYDROXIDE 8%, 30ML UDC PO SCH (09:30)
[2018-11-30] MEDS ORDERED: MAGNESIUM CITRATE 300ML ORAL SOL PO ONE (11:30)
[2018-11-30] MEDS: ERTAPENEM 1 GM in SODIUM CHLORIDE 0.9% 50 ML IV SCH (12:39)
[2018-11-30 13:27] VITALS: BP 94/59
[2018-11-30] MEDS: DAPTOMYCIN 725 MG in SODIUM CHLORIDE 0.9% 100 ML IVPB SCH (15:20)
[2018-11-30] MEDS: CYCLOBENZAPRINE 10 MG TABLET PO PRN (17:50)
[2018-11-30 19:29] VITALS: BP 98/62
[2018-11-30] MEDS: NIACIN 500 MG TABLET.ER PO SCH (20:56)
[2018-12-01] MEDS: MORPHINE SULFATE 4 MG/ML, 1ML IVPush PRN ×7 (01:20→22:27)
[2018-12-01 02:34] VITALS: BP 116/73
[2018-12-01] MEDS: HEPARIN 5,000 UNITS/ML, 1ML SQ SCH ×3 (05:00→20:59)
[2018-12-01 07:27] VITALS: BP 120/70
[2018-12-01] MEDS: LISINOPRIL 5 MG TABLET PO SCH ×2 (07:58→21:00)
[2018-12-01] MEDS: LEVETIRACETAM 500 MG TABLET PO SCH ×2 (07:58→21:10)
[2018-12-01] MEDS: SENNA/DOCUSATE TABLET PO SCH (07:59)
[2018-12-01] MEDS: AMLODIPINE 10 MG TAB PO SCH (07:59)
[2018-12-01] MEDS: FLUOXETINE HCL 20 MG CAPSULE PO SCH (07:59)
[2018-12-01] MEDS: SODIUM CHLORIDE FLUSH 10ML SYR IVF SCH ×2 (08:00→21:11)
[2018-12-01] MEDS: MAGNESIUM HYDROXIDE 8%, 30ML UDC PO SCH (08:00)
[2018-12-01] MEDS: CHOLECALCIFEROL 1,000 UNIT TABLET PO SCH (08:00)
[2018-12-01] MEDS ORDERED: MAGNESIUM CITRATE 300ML ORAL SOL PO ONE (11:00)
[2018-12-01 14:00] VITALS: BP 90/60
[2018-12-01] MEDS: ERTAPENEM 1 GM in SODIUM CHLORIDE 0.9% 50 ML IV SCH (14:01)
[2018-12-01] MEDS: HYDROcodone/APAP 5/325 TABLET PO PRN ×2 (14:05→20:06)
[2018-12-01] MEDS: CYCLOBENZAPRINE 10 MG TABLET PO PRN (14:05)
[2018-12-01] MEDS: DAPTOMYCIN 725 MG in SODIUM CHLORIDE 0.9% 100 ML IVPB SCH (15:50)
[2018-12-01 19:19] VITALS: BP 97/59
[2018-12-01] MEDS: NIACIN 500 MG TABLET.ER PO SCH (21:10)
[2018-12-01 22:15] VITALS: BP 102/65
[2018-12-02 00:15] VITALS: BP 117/73
[2018-12-02] MEDS: MORPHINE SULFATE 4 MG/ML, 1ML IVPush PRN ×5 (01:27→21:16)
[2018-12-02] MEDS: HEPARIN 5,000 UNITS/ML, 1ML SQ SCH ×3 (03:13→21:20)
[2018-12-02 05:44] LABS: BASOPHILS # (AUTO) 0.01 x10^3/uL (0-0.1); BASOPHILS % (AUTO) 0 % (0-1); EOSINOPHILS # (AUTO) 0.04 x10^3/uL (0-0.4); EOSINOPHILS % (AUTO) 0 % (1-7); LYMPHOCYTES # (AUTO) 0.75 x10^3/uL (1-3.4); LYMPHOCYTES % (AUTO) 8 % (22-44); MD NO; MEAN CORPUSCULAR HEMOGLOBIN 30.8 pg (27.5-34.5); MEAN CORPUSCULAR HGB CONC 32.6 g/dL (33.2-36.2); MEAN CORPUSCULAR VOLUME 94.4 fL (81-97); MONOCYTES # (AUTO) 0.73 x10^3/uL (0.2-0.8); MONOCYTES % (AUTO) 8 % (2-9); NEUTROPHILS # (AUTO) 7.72 x10^3/uL (1.8-6.8); NEUTROPHILS % (AUTO) 83 % (42-75); PLATELET COUNT 290 x10^3/uL (130-400); RED CELL DISTRIBUTION WIDTH 14.3 % (9.4-14.8)
[2018-12-02] MEDS: MAGNESIUM HYDROXIDE 8%, 30ML UDC PO SCH ×2 (07:57→08:03)
[2018-12-02] MEDS: LISINOPRIL 5 MG TABLET PO SCH ×2 (07:58→21:20)
[2018-12-02] MEDS: LEVETIRACETAM 500 MG TABLET PO SCH ×2 (07:59→21:20)
[2018-12-02] MEDS: CHOLECALCIFEROL 1,000 UNIT TABLET PO SCH (08:00)
[2018-12-02] MEDS: AMLODIPINE 10 MG TAB PO SCH (08:00)
[2018-12-02] MEDS: FLUOXETINE HCL 20 MG CAPSULE PO SCH (08:02)
[2018-12-02] MEDS: SODIUM CHLORIDE FLUSH 10ML SYR IVF SCH ×2 (08:03→21:17)
[2018-12-02 08:04] VITALS: BP 100/66
[2018-12-02] MEDS: SENNA/DOCUSATE TABLET PO SCH (08:04)
[2018-12-02] MEDS: HYDROcodone/APAP 5/325 TABLET PO PRN ×3 (08:12→19:17)
[2018-12-02] MEDS ORDERED: MICAFUNGIN 50 MG in SODIUM CHLORIDE 0.9% 100 ML IV SCH (12:00)
[2018-12-02] MEDS: ERTAPENEM 1 GM in SODIUM CHLORIDE 0.9% 50 ML IV SCH (12:15)
[2018-12-02] MEDS: DAPTOMYCIN 725 MG in SODIUM CHLORIDE 0.9% 100 ML IVPB SCH (13:33)
[2018-12-02 14:33] VITALS: BP 95/58
[2018-12-02 20:00] VITALS: BP 110/70
[2018-12-02] MEDS: NIACIN 500 MG TABLET.ER PO SCH (21:20)
[2018-12-03] MEDS: MORPHINE SULFATE 4 MG/ML, 1ML IVPush PRN ×7 (00:26→21:46)
[2018-12-03 01:24] VITALS: BP 106/74
[2018-12-03] MEDS: HEPARIN 5,000 UNITS/ML, 1ML SQ SCH ×3 (04:41→21:00)
[2018-12-03 08:04] VITALS: BP 123/76
[2018-12-03] MEDS: LISINOPRIL 5 MG TABLET PO SCH ×2 (08:17→21:46)
[2018-12-03] MEDS: MAGNESIUM HYDROXIDE 8%, 30ML UDC PO SCH (08:18)
[2018-12-03] MEDS: FLUOXETINE HCL 20 MG CAPSULE PO SCH (08:18)
[2018-12-03] MEDS: CHOLECALCIFEROL 1,000 UNIT TABLET PO SCH (08:18)
[2018-12-03] MEDS: LEVETIRACETAM 500 MG TABLET PO SCH ×2 (08:18→21:45)
[2018-12-03] MEDS: AMLODIPINE 10 MG TAB PO SCH (08:18)
[2018-12-03] MEDS: SODIUM CHLORIDE FLUSH 10ML SYR IVF SCH (08:21)
[2018-12-03] MEDS: SENNA/DOCUSATE TABLET PO SCH (09:00)
[2018-12-03] MEDS: MICAFUNGIN 100 MG in SODIUM CHLORIDE 0.9% 100 ML IV SCH (12:32)
[2018-12-03] MEDS: ERTAPENEM 1 GM in SODIUM CHLORIDE 0.9% 50 ML IV SCH (13:44)
[2018-12-03 14:30] VITALS: BP 96/60
[2018-12-03] MEDS: DAPTOMYCIN 725 MG in SODIUM CHLORIDE 0.9% 100 ML IVPB SCH (14:38)
[2018-12-03] MEDS: HYDROcodone/APAP 5/325 TABLET PO PRN (15:59)
[2018-12-03 19:07] VITALS: BP 106/65
[2018-12-03] MEDS: NIACIN 500 MG TABLET.ER PO SCH (21:45)
[2018-12-04] MEDS: SODIUM CHLORIDE FLUSH 10ML SYR IVF SCH ×2 (01:45→08:48)
[2018-12-04] MEDS: MORPHINE SULFATE 4 MG/ML, 1ML IVPush PRN ×5 (01:45→15:05)
[2018-12-04 01:56] VITALS: BP 100/57
[2018-12-04] MEDS: HEPARIN 5,000 UNITS/ML, 1ML SQ SCH (05:00)
[2018-12-04 06:04] LABS: MEAN CORPUSCULAR HEMOGLOBIN 31.2 pg (27.5-34.5); MEAN CORPUSCULAR HGB CONC 33.5 g/dL (33.2-36.2); MEAN CORPUSCULAR VOLUME 93.1 fL (81-97); MEAN PLATELET VOLUME 6.8 fL (7.4-10.4); PLATELET COUNT 298 x10^3/uL (130-400); RED BLOOD COUNT 3.58 x10^6/uL (4.38-5.82); RED CELL DISTRIBUTION WIDTH 14.4 % (9.4-14.8)
[2018-12-04 06:09] LABS: CALCIUM 8.7 mg/dL (8.5-10.1); CHLORIDE 102 mmol/L (98-107)
[2018-12-04 06:12] LABS: HCT (SEDRATE) 33.4 % (39.2-51.8)
[2018-12-04 06:19] LABS: ALANINE AMINOTRANSFERASE 59 U/L (12-78); ALBUMIN 2.4 g/dL (3.4-5.0); ALKALINE PHOSPHATASE 126 U/L (45-117); ANION GAP 6 mmol/L (5-15); BILIRUBIN,TOTAL 0.5 mg/dL (0.2-1.0); CREATINE KINASE, TOTAL 67 U/L (39-308); CREATININE 0.26 mg/dL (0.7-1.3); TOTAL PROTEIN 6.8 g/dL (6.4-8.2)
[2018-12-04 06:22] LABS: BASOPHILS # (AUTO) 0.02 x10^3/uL (0-0.1); BASOPHILS % (AUTO) 1 % (0-1); EOSINOPHILS # (AUTO) 0.06 x10^3/uL (0-0.4); EOSINOPHILS % (AUTO) 2 % (1-7); LYMPHOCYTES # (AUTO) 0.44 x10^3/uL (1-3.4); LYMPHOCYTES % (AUTO) 11 % (22-44); MD SCAN; MONOCYTES # (AUTO) 0.36 x10^3/uL (0.2-0.8); MONOCYTES % (AUTO) 10 % (2-9); NEUTROPHILS # (AUTO) 2.96 x10^3/uL (1.8-6.8); NEUTROPHILS % (AUTO) 77 % (42-75)
[2018-12-04] MEDS: HYDROcodone/APAP 5/325 TABLET PO PRN ×2 (06:38→12:47)
[2018-12-04 08:00] VITALS: BP 105/66
[2018-12-04] MEDS: SENNA/DOCUSATE TABLET PO SCH (08:44)
[2018-12-04] MEDS: AMLODIPINE 10 MG TAB PO SCH (08:44)
[2018-12-04] MEDS: CHOLECALCIFEROL 1,000 UNIT TABLET PO SCH (08:44)
[2018-12-04] MEDS: FLUOXETINE HCL 20 MG CAPSULE PO SCH (08:44)
[2018-12-04] MEDS: LEVETIRACETAM 500 MG TABLET PO SCH (08:44)
[2018-12-04] MEDS: LISINOPRIL 5 MG TABLET PO SCH (08:45)
[2018-12-04] MEDS: MAGNESIUM HYDROXIDE 8%, 30ML UDC PO SCH (08:48)
[2018-12-04] MEDS: MICAFUNGIN 100 MG in SODIUM CHLORIDE 0.9% 100 ML IV SCH (11:48)
[2018-12-04] MEDS: DAPTOMYCIN 725 MG in SODIUM CHLORIDE 0.9% 100 ML IVPB SCH (13:20)
[2018-12-04] MEDS: ERTAPENEM 1 GM in SODIUM CHLORIDE 0.9% 50 ML IV SCH (14:00)
== END 2018-12-04 15:45 | disposition home or self-care (01) | DRG 698 ==
LOC: ED 16:35 → EDIP 18:30 → 3NE 20:00
PROVIDERS: ADMIT Family Medicine; ATTEND Family Medicine
PROC: 0T9B70Z Drainage of Bladder with Drainage Device, Via Natural or Artificial Opening (ICD-10-PCS; principal; 2018-11-19)
PROC: 02HV33Z Insertion of Infusion Device into Superior Vena Cava, Percutaneous Approach (ICD-10-PCS; 2018-11-22)
PROC: B548ZZA Ultrasonography of Superior Vena Cava, Guidance (ICD-10-PCS; 2018-11-22)
PROC: B5181ZA Fluoroscopy of Superior Vena Cava using Low Osmolar Contrast, Guidance (ICD-10-PCS; 2018-11-22)
PROC: B5181ZA Fluoroscopy of Superior Vena Cava using Low Osmolar Contrast, Guidance (ICD-10-PCS; 2018-11-30)
PROC: 02HV33Z Insertion of Infusion Device into Superior Vena Cava, Percutaneous Approach (ICD-10-PCS; 2018-11-30)
PROC: B548ZZA Ultrasonography of Superior Vena Cava, Guidance (ICD-10-PCS; 2018-11-30)
PROC: 0T2BX0Z Change Drainage Device in Bladder, External Approach (ICD-10-PCS; 2018-12-01)
DX: T83.518A Infection and inflammatory reaction due to other urinary catheter, initial encounter (principal); A41.9 Sepsis, unspecified organism; T80.219A Unspecified infection due to central venous catheter, initial encounter; G82.54 Quadriplegia, C5-C7 incomplete; J96.01 Acute respiratory failure with hypoxia; R65.20 Severe sepsis without septic shock; E87.1 Hypo-osmolality and hyponatremia; K59.2 Neurogenic bowel, not elsewhere classified; J81.1 Chronic pulmonary edema; M86.179 Other acute osteomyelitis, unspecified ankle and foot; T81.30XA Disruption of wound, unspecified, initial encounter; Y83.8 Other surgical procedures as the cause of abnormal reaction of the patient, or of later complication, without mention of misadventure at the time of the procedure; G89.29 Other chronic pain; G90.4 Autonomic dysreflexia; M54.5 Low back pain; R25.1 Tremor, unspecified; B95.2 Enterococcus as the cause of diseases classified elsewhere; B96.20 Unspecified Escherichia coli [E. coli] as the cause of diseases classified elsewhere; D63.8 Anemia in other chronic diseases classified elsewhere; D69.6 Thrombocytopenia, unspecified; E78.00 Pure hypercholesterolemia, unspecified; E87.6 Hypokalemia; I10 Essential (primary) hypertension; I25.10 Atherosclerotic heart disease of native coronary artery without angina pectoris; K59.00 Constipation, unspecified; L97.529 Non-pressure chronic ulcer of other part of left foot with unspecified severity; M81.0 Age-related osteoporosis without current pathological fracture; N30.90 Cystitis, unspecified without hematuria; N31.9 Neuromuscular dysfunction of bladder, unspecified; R50.2 Drug induced fever; Y84.6 Urinary catheterization as the cause of abnormal reaction of the patient, or of later complication, without mention of misadventure at the time of the procedure; Y84.8 Other medical procedures as the cause of abnormal reaction of the patient, or of later complication, without mention of misadventure at the time of the procedure; Y92.89 Other specified places as the place of occurrence of the external cause; Z87.820 Personal history of traumatic brain injury; Z83.3 Family history of diabetes mellitus; Z82.49 Family history of ischemic heart disease and other diseases of the circulatory system; Z87.440 Personal history of urinary (tract) infections; Z89.429 Acquired absence of other toe(s), unspecified side; Z95.1 Presence of aortocoronary bypass graft; Z90.89 Acquired absence of other organs; Z88.2 Allergy status to sulfonamides; Z88.6 Allergy status to analgesic agent
CPT/HCPCS: 36415; 36573; 71045; 74018; 74176; 75984; 80048; 80053; 81001; 82550; 83605; 83880; 85025; 85651; 86140; 87040; 87070; 87077; 87086; 87186; 93005; 93922; 96361; 96365; 96375; 96376; G0378; J0696; J0878; J1335; J1940; J2185; J2248; J2405; J2704; J3010; J3480; C1751; J2270; J7030

== ENCOUNTER → 2019-10-02 | Outpatient (CLI) | payer OTHER, MEDICARE ==
[~2019-10-02] MED LIST changes: +CLON0.3T PO; -CLON0.3T47 PO; -HYDR-3307 PO; +HYDR-36 PO
== END | disposition home or self-care (01) ==
LOC: CFH 06:53
PROVIDERS: ATTEND Internal Medicine Cardiovascular Disease
DX: I35.8 Other nonrheumatic aortic valve disorders (principal); I10 Essential (primary) hypertension; I25.10 Atherosclerotic heart disease of native coronary artery without angina pectoris
CPT/HCPCS: 93306

== ENCOUNTER → 2019-12-26 | Outpatient (CLI) | payer OTHER, MEDICARE | END | disposition home or self-care (01) | LOC: CFH 08:06 | PROVIDERS: ATTEND Physician Assistant | DX: N28.1 Cyst of kidney, acquired (principal); N31.9 Neuromuscular dysfunction of bladder, unspecified | CPT/HCPCS: 76770 ==

== ENCOUNTER → 2020-05-27 | Outpatient (CLI) | payer OTHER, MEDICARE ==
[~2020-05-27] MED LIST changes: +HYDR-3246 PO; -HYDR-36 PO; +REGADENOSON 0.4 MG/5 ML SYRINGE ONE
== END | disposition home or self-care (01) ==
LOC: RAD 10:17
PROVIDERS: ATTEND Internal Medicine Cardiovascular Disease
DX: I10 Essential (primary) hypertension (principal); I25.10 Atherosclerotic heart disease of native coronary artery without angina pectoris
CPT/HCPCS: 78452; 93017; A9502; J2785